=== PATIENT | female | born 1975 | race Caucasian/White ===

== ENCOUNTER 2016-08-07 02:38 | Emergency (ER) | payer OTHER ==
[~2016-08-07] VITALS: Ht 157.5 cm; Wt 57.6 kg
[~2016-08-07 02:38] MED LIST: GABA800T PO; OXCA150T2 PO; OXCA600T2 PO; PANT20TA2 PO; ZIPR60CA PO
[2016-08-07 02:54] VITALS: TEMP 37; Ht 157.5 cm; Wt 57.6 kg
[2016-08-07] MEDS ORDERED: OXYCODONE/ACETAMINOPHEN 5-325 TAB PO ONE (03:45)
[2016-08-07] MEDS ORDERED: OXYC-57 PO (04:57)
--- NOTE | 2016-08-07 04:58 | EMERGENCY ROOM VISIT NOTE ---
ED Visit Note First contact with patient: 03:01 Chief Complaint: Arm Swelling History of Present Illness: Patient is a 40-year-old female who presents to the emergency department by private vehicle this morning for evaluation of her left elbow pain and swelling. She reports that she slipped and fell on Thursday evening. She reports that she was seen at the [facility] emergency department tonight as her elbow began to swell and cause more discomfort. She had an x- ray performed which was thought to be unremarkable. She was provided Toradol falls hydrocodone with no relief of symptoms. She is provided an arm sling for comfort. She is had progressively worsening symptoms which prompted her visit to the emergency Department this evening. The patient is tried over-the- counter medications for symptoms. She rates her current discomfort as an 8/10. Patient denies any associated neck pain, shoulder pain, wrist pain, or hand pain. She denies any numbness or tingling into the distal extremity. She reports no previous fracture or injury to the affected elbow. Medications: Reviewed and discussed with the patient. Allergies: Ciprofloxacin, erythromycin, macrolides, penicillins, sulfa drugs PMH: No pertinent past medical history. SHx: Patient is a 40-year-old female who lives locally. ROS: All pertinent positive and negative review of systems are appropriately documented in the History of Present Illness. Physical Exam: VITAL SIGNS - Vital signs and nursing notes were reviewed. GENERAL - 40-year-old female appearing her stated age and in noticeable discomfort throughout the exam. MUSCULOSKELETAL - Active ROM of the LEFT elbow was limited in both flexion and extension. Mild edema noted to the lateral epicondyle area of the LEFT elbow. No palpable deformities. Mild tenderness over the olecranon process. Moderate tenderness with squeezing the forearm. No tenderness extending to up the humerus. Moderate pain elicited with supination and pronation of the forearm. NEUROLOGIC - SENSORY: Spinothalamic tract was found to be intact with ability to discriminate sharp versus dull sensation at the level of the LEFT shoulder down to the fingertips. No sensory deficits of the dorsal column were appreciated utilizing light touch for evaluation. VASCULAR - Capillary refill was brisk. +3/5 radial pulse palpated. IMAGING: X-ray was obtained and reviewed by myself. There is a questionable small nondisplaced radial head fracture versus artifact. Radiologist's impression unavailable at the time of dictation. ED Course: Patient was seen and evaluated by myself. Patient was provided Percocet for her pain. X-ray of the affected elbow was obtained. Imaging concerning for possible nondisplaced radial head fracture. The patient will continue to use her sling for comfort. She'll follow-up with her primary care provider who is a sports medicine provider. She was offered orthopedic follow-up which she declines at this point. She was provided Percocet for breakthrough symptoms of pain. She was educated on worrisome symptoms for return visit to the emergency department. Patient discharged home in good condition. In the evaluation and treatment of this patient, the following differential diagnoses were considered: Forearm Contusion, Radial Head Fracture, Radial Styloid Process Fracture, Ulnar Styloid Process Fracture, Radius Fracture, Ulnar Fracture, Tennis Elbow, Golfer's Elbow, or Elbow Fracture. Impression: LEFT Elbow Injury, LEFT Radial Head Fracture Discharge Instructions: You have been treated in the Emergency Department for Elbow Pain. You have received pain medicine in the emergency department which impairs your ability to operate a vehicle. It is illegal for you to drive after receiving these medicines. You have been prescribed Percocet to be used for pain control. This is a narcotic medication. You cannot drive or consume alcohol while on this medicine. This medicine should only be used for pain that cannot be controlled with hkyn-rqg-bgpqnme pain medicines. For pain control, you can use the following yhgr-ymm-zfiupul medicines (if >12 yo): - Regular strength (325mg/tab) Tylenol (acetaminophen) 2 tabs every 4-6 hours as needed. Do not exceed 12 tablets in a 24 hour period. Avoid taking more than 4 grams (4000 mg) of Tylenol per day. This includes any other sources of acetaminophen you may take on a regular basis. - Regular strength (200 mg/tab) Advil (ibuprofen) 1-2 tabs every 4-6 hours as needed. Do not exceed a dose of 3200 mg per day. If this is a recent injury (<24 hrs), ice can be applied to the area of pain for the first 3 days to help decrease pain and inflammation. You have been provided the number for an Orthopaedic Surgeon. You should call this number as soon as possible to establish a follow-up visit from today's Emergency Department visit. Return to the Emergency Department if your current symptoms worsen despite treatment course outlined above, or if you develop any of the following symptoms : intractable pain despite aforementioned treatment course or new onset of numbness or tingling of the arm. Problem List Medical Problems: (1) Mitral valve prolapse Status: Chronic (2) Stress Status: Chronic (3) Tobacco dependence Status: Chronic Current/Historical Medications Scheduled Cephalexin Monohydrate (Keflex), 500 MG PO TID Gabapentin (Neurontin), 800 MG PO QID Oxcarbazepine (Trileptal), 150 MG PO BID Oxcarbazepine (Trileptal), 600 MG PO BID Quetiapine Fumarate Xr (Seroquel Xr), 200 MG PO DAILY Allergies Coded Allergies: Macrolides (Verified Allergy, Mild, 08/08/16) RXN NOT STATED- PT SAYS SHE CAN ONLY TAKE TETRACYCLINE Penicillins (Verified Allergy, Mild, 08/08/16) RXN UNKNOWN-PT SAYS SHE CAN ONLY TAKE TETRACYCLINE Sulfa Drugs (Verified Allergy, Mild, 08/08/16) RXN NOT STATED- PT SAYS SHE CAN ONLY TAKE TETRACYCLINE Ciprofloxacin (Verified Allergy, Unknown, `, 08/08/16) Erythromycin (Verified Allergy, Unknown, `, 08/08/16) Vital Signs Date Time Temp Pulse Resp B/P Pulse Ox O2 Delivery O2 Flow Rate FiO2 08/07/16 05:20 66 20 131/81 98 08/07/16 04:49 66 20 131/81 98 Room Air 08/07/16 02:54 37.0 79 20 153/101 98 Room Air Medications Administered Medications (Trade) Dose Ordered Sig/Radha Route Start Time Stop Time Status Last Admin Dose Admin Oxycodone/ Acetaminophen (Percocet 5-325mg Tab) 1 tab NOW ONCE PO 08/07/16 03:45 08/07/16 03:46 DC 08/07/16 03:56 1 TAB Oxycodone/ Acetaminophen (Percocet 5/ 325MG Home Pack) 1 homepack UD ONCE PO 08/07/16 05:00 08/07/16 05:01 DC 08/07/16 05:16 1 HOMEPACK Departure Information Impression Primary Impression: Radial head fracture Additional Impression: Injury of elbow Dispostion Home / Self-Care Condition GOOD Referrals Sal Zafar M.D. (PCP) Patient Instructions ED Fx Radial Head, My [facility] Additional Instructions You have been treated in the Emergency Department for Elbow Pain. You have received pain medicine in the emergency department which impairs your ability to operate a vehicle. It is illegal for you to drive after receiving these medicines. You have been prescribed Percocet to be used for pain control. This is a narcotic medication. You cannot drive or consume alcohol while on this medicine. This medicine should only be used for pain that cannot be controlled with nmtz-luh-azanlcz pain medicines. For pain control, you can use the following hfdi-sba-ojsidll medicines (if >12 yo): - Regular strength (325mg/tab) Tylenol (acetaminophen) 2 tabs every 4-6 hours as needed. Do not exceed 12 tablets in a 24 hour period. Avoid taking more than 4 grams (4000 mg) of Tylenol per day. This includes any other sources of acetaminophen you may take on a regular basis. - Regular strength (200 mg/tab) Advil (ibuprofen) 1-2 tabs every 4-6 hours as needed. Do not exceed a dose of 3200 mg per day. If this is a recent injury (<24 hrs), ice can be applied to the area of pain for the first 3 days to help decrease pain and inflammation. You have been provided the number for an Orthopaedic Surgeon. You should call this number as soon as possible to establish a follow-up visit from today's Emergency Department visit. Return to the Emergency Department if your current symptoms worsen despite treatment course outlined above, or if you develop any of the following symptoms : intractable pain despite aforementioned treatment course or new onset of numbness or tingling of the arm. Problem Qualifiers Primary Impression: Radial head fracture Encounter type: initial encounter Fracture type: closed Fracture alignment : nondisplaced Laterality: left Qualified Codes: S52.125A - Nondisplaced fracture of head of left radius, initial encounter for closed fracture Additional Impression: Injury of elbow Encounter type: initial encounter Laterality: left Qualified Codes: S59.902A - Unspecified injury of left elbow, initial encounter
[2016-08-07] MEDS ORDERED: PERCOCET HOME PACK PO ONE (05:00)
[2016-08-07 05:20] VITALS: BP 131/81; PULSE 66; O2SAT 98
--- NOTE | 2016-08-07 06:38 | DIAGNOSTIC IMAGING REPORT ---
LEFT ELBOW MIN 3 VIEWS ROUTINE CLINICAL HISTORY: Left elbow pain status post trauma COMPARISON: None. DISCUSSION: The fat pads are visible but not significantly displaced. There is age-indeterminate irregularity involving the lateral aspect of the radial head. There is diffuse soft tissue edema. There is no dislocation. IMPRESSION: Subtle age-indeterminate irregularity involving the lateral aspect of the radial head Electronically signed by: Gabe Koo M.D. 08/07/2016 6:37 AM Dictated Date/Time: 08/07/2016 6:35 AM
[2016-08-08] MEDS ORDERED: QUET200T2 PO (00:40)
[2016-08-08] MEDS ORDERED: CEPH500C PO (03:02)
== END 2016-08-07 05:24 | disposition home or self-care (01) ==
LOC: C.EDB 02:39
DX: S52.125A Nondisplaced fracture of head of left radius, initial encounter for closed fracture (principal); S59.902A Unspecified injury of left elbow, initial encounter; X58.XXXA Exposure to other specified factors, initial encounter; I34.1 Nonrheumatic mitral (valve) prolapse; F17.200 Nicotine dependence, unspecified, uncomplicated

== ENCOUNTER 2016-08-07 23:39 | Emergency (ER) | payer OTHER ==
[~2016-08-07] VITALS: Ht 157.5 cm; Wt 57.7 kg
[~2016-08-07 23:39] MED LIST changes: +OXYC-57 PO
[2016-08-07 23:54] VITALS: TEMP 37.1; Ht 157.5 cm; Wt 57.7 kg
[2016-08-08] MEDS ORDERED: QUET200T2 PO (00:40)
[2016-08-08 00:59] LABS: HEMATOCRIT 38.9 % (37-47); MEAN CELL VOLUME 92.6 fL (80-100); MEAN CORPUSCULAR HEMOGLOBIN 31.9 pg (25-34); MEAN CORPUSCULAR HGB CONC 34.4 g/dl (32-36); MEAN PLATELET VOLUME 11.7 fL (7.4-10.4); PLATELET COUNT 243 K/uL (130-400); WHITE BLOOD COUNT 14.92 K/uL (4.8-10.8)
[2016-08-08 01:13] LABS: INR 0.9 (0.9-1.1); PARTIAL THROMBOPLASTIN RATIO 1.1; PROTHROMBIN TIME (PATIENT) 10.1 SECONDS (9.0-12.0)
[2016-08-08 01:16] LABS: CALCIUM 8.6 mg/dl (8.5-10.1); POTASSIUM 3.8 mmol/L (3.5-5.1)
[2016-08-08 01:17] LABS: BUN/CREATININE RATIO 25.9 (10-20); C-REACTIVE PROTEIN 1.73 mg/dl (0-0.29); CREATININE 0.63 mg/dl (0.60-1.20)
[2016-08-08] MEDS ORDERED: MoRPHine SULFATE 4 MG/ML 1 ML CARP\\VIAL IV STA (01:50)
[2016-08-08] MEDS ORDERED: SODIUM CHLORIDE 0.9% 1000ML 1,000 ML IV STA (01:50)
[2016-08-08] MEDS ORDERED: ONDANSETRON INJ 2 MG/ML 2 ML VIAL IV STA (01:50)
[2016-08-08 02:12] LABS: BASO % 0.1 %; BASO ABS # 0.02 K/uL (0-0.2); COMPLETE YES; EOS % 0.6 %; IG% 0.3 %; LYMPH % 17.7 %; LYMPH ABS # 2.64 K/uL (1.2-3.4); MONO % 7.2 %; NEUT % 74.1 %
[2016-08-08] MEDS ORDERED: CEPHALEXIN MONOHYDRATE 250 MG CAP PO ONE (02:15)
[2016-08-08] MEDS ORDERED: CEPHALEXIN 500MG HOME PACK 1 EA BTL PO ONE (02:15)
[2016-08-08] MEDS ORDERED: CEPH500C PO (03:02)
--- NOTE | 2016-08-08 03:03 | EMERGENCY ROOM VISIT NOTE ---
History First contact with patient: 00:06 Chief Complaint: ARM PAIN Stated Complaint: COMPLICATIONS SINCE D/C THIS MORNING, LT ARM PAIN History of Present Illness The patient is a 40 year old female who presents to the Emergency Department by private vehicle for evaluation of her ongoing pain to the LEFT upper extremity with associated redness this evening. The patient sustained a mechanical fall on Thursday. She was seen in the [facility] emergency department on Thursday evening. She had persistent pain which prompted visit to this facility early morning. She had been feeling fine, but has had persistent pain. She developed redness to the elbow area which was concerning to him which prompted her visit today. The patient reports numbness to the entire hand. She reports some mild decreased range of motion secondary to discomfort at the elbow. She rates her current discomfort as an 8/10. Patient denies any fevers, chills, nausea, vomiting, or new/recent trauma to the area. She does not utilize any blood thinners. She is tried adsk-tlb-twqxlua medications for her symptoms. She has had Percocet which is provided a moderate amount of relief. Review of Systems A complete 10-point Review of Systems was discussed with the patient, with pertinent positives and negatives listed in the History of Present Illness. All remaining Review of Systems questions can be considered negative unless otherwise specified. Past Medical/Surgical History Medical Problems: (1) Mitral valve prolapse (2) Stress (3) Tobacco dependence Family History FHx: heart disease Social History Smoking Status: Current Every Day Smoker Smokeless Tobacco Use: No Drug Use: marijuana Marital Status: Occupation Status: unemployed Current/Historical Medications Scheduled Cephalexin Monohydrate (Keflex), 500 MG PO TID Gabapentin (Neurontin), 800 MG PO QID Oxcarbazepine (Trileptal), 150 MG PO BID Oxcarbazepine (Trileptal), 600 MG PO BID Quetiapine Fumarate Xr (Seroquel Xr), 200 MG PO DAILY Allergies Coded Allergies: Macrolides (Verified Allergy, Mild, 08/08/16) RXN NOT STATED- PT SAYS SHE CAN ONLY TAKE TETRACYCLINE Penicillins (Verified Allergy, Mild, 08/08/16) RXN UNKNOWN-PT SAYS SHE CAN ONLY TAKE TETRACYCLINE Sulfa Drugs (Verified Allergy, Mild, 08/08/16) RXN NOT STATED- PT SAYS SHE CAN ONLY TAKE TETRACYCLINE Ciprofloxacin (Verified Allergy, Unknown, `, 08/08/16) Erythromycin (Verified Allergy, Unknown, `, 08/08/16) Physical Exam Vital Signs Date Time Temp Pulse Resp B/P Pulse Ox O2 Delivery O2 Flow Rate FiO2 08/08/16 03:13 70 18 106/81 100 08/08/16 01:53 77 18 114/77 99 Room Air 08/07/16 23:54 37.1 95 16 126/84 98 Room Air Pain Rating (0-10): 8 Physical Exam VITAL SIGNS - Vital signs and nursing notes were reviewed. GENERAL - 40-year-old female appearing her stated age and in noticeable discomfort throughout the exam. MUSCULOSKELETAL - Active ROM of the LEFT elbow was limited in both flexion and extension. She has approximately 75% extension of the affected elbow. There is overlying erythema to the lateral surface of the elbow. The compartments are soft, but tender to palpation. No palpable cords. Minimally warm to touch. No ecchymosis noted. No palpable deformities. Mild tenderness over the olecranon process. Moderate tenderness with squeezing the forearm. No tenderness extending to up the humerus. Moderate point-tenderness over the insertion of the lateral collateral ligament. Moderate pain elicited with supination and pronation of the forearm. Able to extend and flex the wrist. NEUROLOGIC - SENSORY: Spinothalamic tract was found to be intact with ability to discriminate sharp versus dull sensation at the level of the LEFT shoulder down to the fingertips. No sensory deficits of the dorsal column were appreciated utilizing light touch for evaluation. VASCULAR - Capillary refill was brisk. +3/5 radial pulse palpated. Medical Decision & Procedures ER Provider Diagnostic Interpretation: Radiological imaging and reports were reviewed by myself. Radiologist's Interpretation per [facility] as follows: US VENOUS LEFT UPPER EXTREMITY: No DVT. CT LEFT ELBOW: Small fragment near the lateral epicondyle, could be small evulsion fragment or degenerative in nature. Soft tissue swelling and edema. Effusion. Laboratory Results 08/08/16 00:35 Red Blood Count 4.20, Mean Corpuscular Volume 92.6, Mean Corpuscular Hemoglobin 31.9, Mean Corpuscular Hemoglobin Concent 34.4, Mean Platelet Volume 11.7, Neutrophils (%) (Auto) 74.1, Lymphocytes (%) (Auto) 17.7, Monocytes (%) (Auto) 7.2, Eosinophils (%) (Auto) 0.6, Basophils (%) (Auto) 0.1, Neutrophils # (Auto) 11.05, Lymphocytes # (Auto) 2.64, Monocytes # (Auto) 1.08, Eosinophils # (Auto) 0.09, Basophils # (Auto) 0.02 08/08/16 00:35 Test 08/08/16 00:35 White Blood Count 14.92 K/uL (4.8-10.8) Red Blood Count 4.20 M/uL (4.2-5.4) Hemoglobin 13.4 g/dL (12.0-16.0) Hematocrit 38.9 % (37-47) Mean Corpuscular Volume 92.6 fL (80-100) Mean Corpuscular Hemoglobin 31.9 pg (25-34) Mean Corpuscular Hemoglobin Concent 34.4 g/dl (32-36) Platelet Count 243 K/uL (130-400) Mean Platelet Volume 11.7 fL (7.4-10.4) Neutrophils (%) (Auto) 74.1 % Lymphocytes (%) (Auto) 17.7 % Monocytes (%) (Auto) 7.2 % Eosinophils (%) (Auto) 0.6 % Basophils (%) (Auto) 0.1 % Neutrophils # (Auto) 11.05 K/uL (1.4-6.5) Lymphocytes # (Auto) 2.64 K/uL (1.2-3.4) Monocytes # (Auto) 1.08 K/uL (0.11-0.59) Eosinophils # (Auto) 0.09 K/uL (0-0.5) Basophils # (Auto) 0.02 K/uL (0-0.2) RDW Standard Deviation 49.4 fL (36.4-46.3) RDW Coefficient of Variation 14.5 % (11.5-14.5) Immature Granulocyte % (Auto) 0.3 % Immature Granulocyte # (Auto) 0.04 K/uL (0.00-0.02) Erythrocyte Sedimentation Rate 3 mm/hr (0-21) Prothrombin Time 10.1 SECONDS (9.0-12.0) Prothromb Time International Ratio 0.9 (0.9-1.1) Activated Partial Thromboplast Time 27.8 SECONDS (21.0-31.0) Partial Thromboplastin Ratio 1.1 Anion Gap 5.0 mmol/L (3-11) Est Creatinine Clear Calc Drug Dose 94.9 ml/min Estimated GFR () 131.0 Estimated GFR (Non- 113.0 BUN/Creatinine Ratio 25.9 (10-20) Calcium Level 8.6 mg/dl (8.5-10.1) Total Creatine Kinase 1187 U/L (26-192) C-Reactive Protein 1.73 mg/dl (0-0.29) Medications Administered Medications (Trade) Dose Ordered Sig/Radha Route Start Time Stop Time Status Last Admin Dose Admin Morphine Sulfate (MoRPHine SULFATE INJ) 4 mg NOW STAT IV 08/08/16 01:50 08/08/16 01:51 DC 08/08/16 02:04 4 MG Ondansetron HCl 4 mg 4 mg NOW STAT IV 08/08/16 01:50 08/08/16 01:51 DC 08/08/16 02:03 4 MG Sodium Chloride (Nss 1000ml) 1,000 ml @ 999 mls/hr Q1H1M STAT IV 08/08/16 01:50 08/08/16 02:50 DC 08/08/16 02:03 999 MLS/HR Cephalexin Monohydrate (Keflex 500MG Home Pack) 1 homepack NOW ONCE PO 08/08/16 02:15 08/08/16 02:16 DC 08/08/16 02:17 1 HOMEPACK Cephalexin Monohydrate (Keflex Cap) 500 mg NOW ONCE PO 08/08/16 02:15 08/08/16 02:16 DC 08/08/16 02:17 500 MG ED Course Patient was seen and evaluated by myself. I'm familiar with this patient from her visit earlier today. Labs were drawn, saline lock in place. CT the elbow and ultrasound of the LEFT upper extremity was obtained. Laboratory results demonstrate a mild leukocytosis. Her ESR is not elevated. CRP is minimally elevated. CPK was elevated at 1187. Patient was hydrated with a 1000 mL normal saline bolus. She received 4 mg morphine and 4 mg Zofran. Case was discussed with my attending physician who agrees the diagnostic approach treatment plan. I did discuss the case with [facility] surgery. He suggests splinting the area for comfort and continue with a sling. They are not concerned for compartment syndrome at this point. The patient was covered prophylactically with antibiotics. She reports feeling much better with sling in place. She will followup with orthopedic surgery from today's visit. She was educated on worrisome symptoms for return visit to the emergency part. Patient discharged home in good condition with her son driving. Medical Decision Given the patient's presentation and exam findings, I did elect to perform the above-mentioned workup. The patient presents with redness to the LEFT elbow. She had sustained a mechanical fall resulting in injury on Thursday. She had plain radiographs performed which were concerning for a nondisplaced radial head fracture. She reports that her pain has been adequately controlled with Percocet, but redness developed this evening which was concerning to her. The patient complains of subjective numbness to all fingers of the LEFT hand, however she does have range of motion in sensation on exam. She remains neurovascularly intact distally. She has full extension and flexion of the wrist. She did have a 14,000 white count as well as elevation of her CPK. Because of this, I did consult orthopedic surgery. They were unconcerned for compartment syndrome at this point. They do suggest splinting the area well as the patient is likely experiencing symptoms secondary to the edema from the injury. She did feel much better after splint was applied. She will follow-up with surgery tomorrow. She will return the emergency department in the setting of any changing or worsening symptoms. Patient discharged home in good condition. In the evaluation and treatment of this patient, the following differential diagnoses were considered: Forearm Contusion, Radial Head Fracture, Radial Styloid Process Fracture, Ulnar Styloid Process Fracture, Radius Fracture, Ulnar Fracture, Tennis Elbow, Golfer's Elbow, or Elbow Fracture. Impression Primary Impression: Elbow pain, left Additional Impression: Edema of upper extremity Departure Information Dispostion Home / Self-Care Condition GOOD Prescriptions Cephalexin Monohydrate (Keflex) 500 Mg Cap 500 MG PO TID for 10 Days, #30 CAP Prov: Jake Lozano PA-C 08/08/16 Referrals Sal Zafar M.D. (PCP) Phill Krishnan M.D. Patient Instructions My [facility] Additional Instructions You have been seen in the emergency department today for worsening pain and swelling to the LEFT upper extremity. You were prescribed Keflex to be taken as prescribed. This is an antibiotic. All antibiotics have the potential to cause diarrhea. Stop this medication and contact a medical provider if you were to develop any significant adverse side effects including: wheezing, shortness of breath, passing out, vomiting, or a diffuse rash. Always take antibiotics as directed and COMPLETE the ENTIRE course regardless of the improvement of your symptoms. Continue your Percocet as needed for pain. For pain control, you can use the following duer-lhc-pkofsnr medicines (if >12 yo): - Regular strength (325mg/tab) Tylenol (acetaminophen) 2 tabs every 4-6 hours as needed. Do not exceed 12 tablets in a 24 hour period. Avoid taking more than 4 grams (4000 mg) of Tylenol per day. This includes any other sources of acetaminophen you may take on a regular basis. - Regular strength (200 mg/tab) Advil (ibuprofen) 1-2 tabs every 4-6 hours as needed. Do not exceed a dose of 3200 mg per day. Follow-up with orthopedic surgery as soon as possible from today's visit. Return for any changing or worsening symptoms. Problem Qualifiers
[2016-08-08 03:13] VITALS: BP 106/81; PULSE 70; O2SAT 100
--- NOTE | 2016-08-08 07:09 | DIAGNOSTIC IMAGING REPORT ---
ULTRASOUND LEFT UPPER EXTREMITY VENOUS CLINICAL HISTORY: Left arm pain. COMPARISON STUDY: No priors. TECHNIQUE: Real-time, grayscale, and color Doppler sonography of the deep veins of the left upper extremity is performed. Compression and augmentation were utilized. FINDINGS: There is no sonographic evidence of deep venous thrombosis identified in the left upper extremity. The left internal jugular, axillary, and brachial veins are patent and normally compressible. Normal venous waveforms and augmentation are seen within the left subclavian vein. The cephalic and basilic veins are clear. The visualized radial and ulnar veins are patent. IMPRESSION: There is no sonographic evidence of deep venous thrombosis identified in the left upper extremity. Electronically signed by: Rubio Elizondo M.D. 08/08/2016 7:07 AM Dictated Date/Time: 08/08/2016 7:07 AM
--- NOTE | 2016-08-08 07:25 | DIAGNOSTIC IMAGING REPORT ---
CT OF THE LEFT ELBOW CT DOSE: 606.83 mGy.cm HISTORY: Trauma. Pain. LEFT elbow pain/injury TECHNIQUE: Multiaxial CT images of the left elbow were performed and reformatted in the sagittal and coronal plane without the use of contrast. COMPARISON: None. FINDINGS: Considerable soft tissue edematous changes throughout. Small cortical avulsion posterior aspect proximal ulna most likely old. This is immediately adjacent to the radial head. Very small avulsion medially posterior to the lateral condyle. This is age indeterminate. Alignment is anatomic throughout. IMPRESSION: 1. Small cortical avulsion adjacent to the radial head considered nonacute. 2. Tiny avulsion posterior aspect lateral condyle 3. Generalized soft tissue edema. 4. Very small joint effusion. Electronically signed by: Darnell Carpenter M.D. 08/08/2016 7:24 AM Dictated Date/Time: 08/08/2016 7:20 AM
== END 2016-08-08 03:14 | disposition home or self-care (01) ==
LOC: C.EDB 23:40
DX: M25.522 Pain in left elbow (principal); M79.9 Soft tissue disorder, unspecified; W19.XXXD Unspecified fall, subsequent encounter; F17.210 Nicotine dependence, cigarettes, uncomplicated; I34.1 Nonrheumatic mitral (valve) prolapse; Z79.899 Other long term (current) drug therapy

== ENCOUNTER → 2016-08-15 | Outpatient (CLI) | payer OTHER ==
[~2016-08-15] MED LIST changes: +CEPH500C PO; +CLR10 PO; +CYCL10TA6 PO; +HYDR-5688 PO; -OXYC-57 PO; -PANT20TA2 PO; +PRLSR20 PO; +QUET200T2 PO; -ZIPR60CA PO; +psych med PO
--- NOTE | 2016-08-15 11:54 | DIAGNOSTIC IMAGING REPORT ---
LEFT ELBOW MIN 3 VIEWS CLINICAL HISTORY: LEFT ELBOW PAIN pain COMPARISON: None. DISCUSSION: Generalized soft tissue edematous change. No well-defined joint effusion. Cortical margins are intact. No acute bony abnormality. No abnormal periosteal reaction. IMPRESSION: Generalized soft tissue edematous change. No acute bony abnormality. Electronically signed by: Darnell Carpenter M.D. 08/15/2016 11:52 AM Dictated Date/Time: 08/15/2016 11:51 AM
== END | disposition home or self-care (01) ==
LOC: C.RDSM 13:40
PROVIDERS: ATTEND Physician Assistant
DX: M25.522 Pain in left elbow (principal)

== ENCOUNTER → 2016-09-04 | Outpatient (CLI) | payer OTHER ==
[~2016-09-04] MED LIST changes: -CEPH500C PO
--- NOTE | 2016-09-04 11:54 | DIAGNOSTIC IMAGING REPORT ---
LEFT ELBOW MIN 3 VIEWS CLINICAL HISTORY: Left elbow pain. Healing fracture. COMPARISON: Left elbow radiographs August 15, 2016. FINDINGS: Alignment of left elbow is anatomic. There is no acute fracture or joint effusion. Joint spaces are preserved. IMPRESSION: No acute fracture or joint effusion of the left elbow. Electronically signed by: Jimi Rodriguez M.D. 09/04/2016 11:53 AM Dictated Date/Time: 09/04/2016 11:52 AM
== END | disposition home or self-care (01) ==
LOC: C.RDSM 13:52
PROVIDERS: ATTEND Physician Assistant
DX: M25.522 Pain in left elbow (principal)

== ENCOUNTER → 2016-10-27 | Outpatient (CLI) | payer OTHER | END | disposition home or self-care (01) | LOC: C.RDSM 14:11 | PROVIDERS: ATTEND Physical Medicine & Rehabilitation Sports Medicine | DX: S53.442A Ulnar collateral ligament sprain of left elbow, initial encounter (principal); X58.XXXA Exposure to other specified factors, initial encounter ==

== ENCOUNTER 2017-01-04 16:59 | Emergency (ER) | payer OTHER ==
[~2017-01-04] VITALS: Ht 157.5 cm; Wt 56.5 kg
[~2017-01-04 16:59] MED LIST changes: -CLR10 PO; -CYCL10TA6 PO; -HYDR-5688 PO; -PRLSR20 PO; -psych med PO
[2017-01-04 17:03] VITALS: TEMP 36.6; Ht 157.5 cm; Wt 56.5 kg
[2017-01-04] MEDS ORDERED: CLR10 PO (17:25)
[2017-01-04] MEDS ORDERED: psych med PO (17:25)
[2017-01-04] MEDS ORDERED: PRLSR20 PO (17:25)
[2017-01-04] MEDS ORDERED: DIAZEPAM 5MG TAB PO STA (18:00)
[2017-01-04] MEDS ORDERED: ONDANSETRON 4MG OD TAB PO ONE (18:00)
[2017-01-04] MEDS ORDERED: KETOROLAC TROMETHAMINE 60 MG/2 ML VIAL IM STA (18:00)
[2017-01-04] MEDS ORDERED: HYDROmorphone INJ 1 MG/ML SYR IM STA (18:00)
[2017-01-04] MEDS ORDERED: HYDR-5688 PO (19:00)
[2017-01-04] MEDS ORDERED: CYCL10TA6 PO (19:00)
--- NOTE | 2017-01-04 19:01 | EMERGENCY ROOM VISIT NOTE ---
ED Visit Note First contact with patient: 17:19 CHIEF COMPLAINT: Mid back pain since yesterday morning HISTORY OF PRESENT ILLNESS: Patient is a 41-year-old white female who presents emergency department for evaluation of mid back pain that started acutely yesterday morning. She reports she was laying on her abdomen on the ground and she had a kitten on her back. She twisted to get the cat off of her back, and fell the acute onset of a sharp pain in her left mid back. She describes feeling a snapping sensation at the time of the injury. She has tried icy hot, massage and heat to the area. She is out of acetaminophen and reports she cannot tolerate NSAIDs due to stomach issues. The pain is located between her shoulder blades, primarily on the left, but she does feel some spasms radiating down to her low back with certain movements. She does not have a history of any significant back issues. She denies any radiation of the pain into her buttocks or legs. No numbness, tingling or weakness of the extremities. No bowel or bladder incontinence. She rates her pain a 9/10 presently. REVIEW OF SYSTEMS: Review of systems as per HPI. All other systems reviewed were negative. 10 systems reviewed. PMH: Electronic medical records are reviewed and summarized as above/below. See Problem List. SOCIAL HISTORY: Patient lives at home with her children. She is a student. Positive tobacco use. PHYSICAL EXAM: Vital Signs: Reviewed Nurse's notes. CONSTITUTIONAL: Patient is who is awake and alert and sitting semi-upright on the gurney in moderate distress due to their back pain. There is significant discomfort with position changes. NECK: Supple without lymphadenopathy. No thyromegaly. No meningeal signs. Full active range of motion without discomfort. CARDIOVASCULAR: Regular rate and rhythm, with normal S1 and S2, no murmur or gallop or rub is heard. No carotid bruits auscultated. No JVD. Peripheral pulses easily palpable. RESPIRATORY: Breath sounds equal and clear to auscultation without wheezes, rales, or rhonchi heard. Full and equal chest expansion without accessory muscle use or retractions. ABDOMEN: Bowel sounds are present. Abdomen is soft, nontender and nondistended. INTEGUMENTARY: No lesions or rash, normal skin turgor. LYMPH: No lymphadenopathy. SPINE: Examination of the patient's back does not demonstrate any ecchymosis, abrasions or outward signs of trauma. No erythema, increased warmth or induration. Patient has midline discomfort to palpation over the mid thoracic paraspinous musculature on the left. No pain over the thoracic spinous processes or in the right paraspinous musculature. There is no pain over the lumbar spinous process. There is no pain over the SI joint or the sciatic notch. She has increased pain with range of motion including rotation and flexion. EXTREMITIES: Leg lengths are symmetrical. Negative logroll bilaterally. Normal strength including dorsi-flexion and plantar flexion of the great toes and ankles and flexion and extension of the knees and flexion of the hips. Negative bilateral straight leg raise testing. Upper and lower extremity DTRs are equal and symmetrical bilaterally. Distal pulses are easily palpable. Sensation light touch is intact over the upper and lower extremities bilaterally. EMERGENCY DEPARTMENT COURSE: The patient was seen and examined as above. Old records were reviewed. She was medicated with Zofran 4 mg ODT, Valium 5 mg by mouth, Toradol 60 mg IM and Dilaudid 1 mg IM. Urine dip and test were clear. She was reassessed, and reported she felt markedly improved. She was observed moving more easily around the exam room and on the gurney with less discomfort. Conservative care measures were discussed. Her mechanism of injury appears more consistent with muscle/ligament etiology, and given lack of direct trauma to the area was not felt that radiographs were indicated. She expressed understanding of this and was agreeable. She does not have any physical exam findings to suspect acute cord compression or cauda equina syndrome. Conservative care measures were discussed. She was given a small prescription for Mantador and Flexeril to use as needed. Driving precautions were outlined. She was discharged to home with a family friend driving. She rated her pain a 0/10 at discharge. Patient was reviewed in the [facility] Prescription Drug Monitoring Program, and there were no red flags noted. Medication reconciliation: I attest that I have personally reviewed the patient' s current medication list. Blood pressure screening : Patient was found to have normal blood pressure on screening and does not require follow-up. Problem List Medical Problems: (1) Abnormal EKG Status: Resolved (2) Acute bronchitis Status: Resolved (3) Anxiety State Nos Status: Chronic (4) Asthma W/O Status Asthm Status: Chronic (5) Back pain Status: Resolved (6) Bronchitis Status: Resolved (7) Cervical radiculopathy Status: Resolved (8) Depressive Disorder Nec Status: Chronic (9) Edema of upper extremity Status: Resolved (10) Elbow pain, left Status: Resolved (11) Injury of elbow Status: Resolved (12) Irritable Bowel Syndrome Without Diarrhea Status: Chronic (13) Mitral valve prolapse Status: Chronic (14) Pleuritic chest pain Status: Resolved (15) Radial head fracture Status: Resolved (16) Right otitis media Status: Resolved (17) Stress Status: Chronic (18) Tobacco dependence Status: Chronic Current/Historical Medications Scheduled Loratadine (Claritin), 10 MG PO DAILY Omeprazole (Prilosec), 20 MG PO BID [psych med], 1 TAB PO DAILY Scheduled PRN Cyclobenzaprine Hcl (Flexeril), 10 MG PO TID PRN for Muscle Spasms Hydrocodone/Acetaminophen 5MG/325MG (Mantador 5MG/325MG), 1-2 TABLETS PO Q4 PRN for Pain Allergies Coded Allergies: Macrolides (Verified Allergy, Mild, 01/04/17) RXN NOT STATED- PT SAYS SHE CAN ONLY TAKE TETRACYCLINE Penicillins (Verified Allergy, Mild, 01/04/17) RXN UNKNOWN-PT SAYS SHE CAN ONLY TAKE TETRACYCLINE Sulfa Drugs (Verified Allergy, Mild, 01/04/17) RXN NOT STATED- PT SAYS SHE CAN ONLY TAKE TETRACYCLINE Ciprofloxacin (Verified Allergy, Unknown, `, 01/04/17) Erythromycin (Verified Allergy, Unknown, `, 01/04/17) Vancomycin (Unverified Adverse Reaction, Severe, red, hot, rash, 01/04/17) Cephalexin (Unverified Adverse Reaction, Intermediate, rash, 01/04/17) Vital Signs Date Time Temp Pulse Resp B/P (MAP) Pulse Ox O2 Delivery O2 Flow Rate FiO2 01/04/17 19:09 73 16 123/76 98 01/04/17 17:03 36.6 85 16 101/70 100 Room Air Laboratory Results Test 01/04/17 18:15 Urine Test NEG (NEG) Medications Administered Medications (Trade) Dose Ordered Sig/Radha Route Start Time Stop Time Status Last Admin Dose Admin Ketorolac Tromethamine (Toradol Inj) 60 mg NOW STAT IM 01/04/17 18:00 01/04/17 18:02 DC 01/04/17 18:18 60 MG Ondansetron HCl (Zofran Odt) 4 mg ONE ONCE PO 01/04/17 18:00 01/04/17 18:02 DC 01/04/17 18:16 4 MG Diazepam (Valium Tab) 5 mg NOW STAT PO 01/04/17 18:00 01/04/17 18:02 DC 01/04/17 18:17 5 MG Hydromorphone HCl (Dilaudid Inj) 1 mg NOW STAT IM 01/04/17 18:00 01/04/17 18:02 DC 01/04/17 18:17 1 MG Departure Information Impression Primary Impression: Thoracic myofascial strain Prescriptions Cyclobenzaprine Hcl (FLEXERIL) 10 Mg Tab 10 MG PO TID Y for Muscle Spasms, #20 TAB Prov: Margot Smith PA 01/04/17 Hydrocodone/Acetaminophen 5MG/325MG (Mantador 5MG/325MG) Tab 1-2 TABLETS PO Q4 Y for Pain, #20 TAB For Initial Treatment Prov: Margot Smith PA 01/04/17 Referrals No Doctor, Assigned (PCP) Patient Instructions My [facility] Additional Instructions DO NOT drive, drink alcohol, operate machinery, or perform dangerous activities today. You were given medications in the ER that can affect your ability to safely function or operate a vehicle. Hydrocodone/Acetaminophen (Mantador) 5/325 mg: Take 1-2 pills every four hours for breakthrough pain. Avoid alcohol, operating machinery or dangerous equipment, working on ladders or roofs, DRIVING, or situations where being under the influence may be dangerous. It is recommended to use an [id number] stool softener such as Colace, 100mg twice daily while taking this medication to avoid constipation. Cyclobenzaprine (Flexeril) 10 mg: Take 1 pills 3 times daily as needed for muscle spasms.. Avoid alcohol, operating machinery or dangerous equipment, working on ladders or roofs, DRIVING, or situations where being under the influence may be dangerous. Ibuprofen(Motrin, Advil) may be used for fever or pain. Use 600mg every six hours as needed. Take with food. Avoid using more than 2400mg in a 24 hour period. Do not use 2400mg per day for more than three consecutive days without physician direction. Prolonged inappropriate use can lead to stomach upset or ulcers. This medication can be taken if you need to drive, work, or perform activities which may be dangerous when taking narcotic pain medication. Rest and avoid heavy lifting until your symptoms resolve and then gradually return to full activity. A good rule of thumb is if it hurts your back to perform a certain activity, then it should be avoided until you are healthy again. A heating pad, warm compresses, or a hot shower may help with tight muscles and can be done several times a day as needed. Continue current medications. Return to the ER immediately for any numbness, tingling, severe pain, loss of control of your bowels or bladder, inability to walk, or as needed. Follow up with your primary care physician within 3-5 days for a recheck of your current condition. Problem Qualifiers Primary Impression: Thoracic myofascial strain Encounter type: initial encounter Qualified Codes: S29.019A - Strain of muscle and tendon of unspecified wall of thorax, initial encounter
[2017-01-04 19:09] VITALS: BP 123/76; PULSE 73; O2SAT 98
== END 2017-01-04 19:10 | disposition home or self-care (01) ==
LOC: C.EDB 17:00 → C.EDD 19:10
DX: S29.019A Strain of muscle and tendon of unspecified wall of thorax, initial encounter (principal); X50.1XXA Overexertion from prolonged static or awkward postures, initial encounter; F41.9 Anxiety disorder, unspecified; J45.909 Unspecified asthma, uncomplicated; F32.9 Major depressive disorder, single episode, unspecified; K58.9 Irritable bowel syndrome, unspecified; I34.1 Nonrheumatic mitral (valve) prolapse; Z72.0 Tobacco use; Z79.899 Other long term (current) drug therapy

== ENCOUNTER → 2017-02-06 | Outpatient (CLI) | payer OTHER ==
[~2017-02-06] MED LIST changes: +CLR10 PO; -GABA800T PO; +HYDR-5688 PO; -OXCA150T2 PO; -OXCA600T2 PO; +PRLSR20 PO; -QUET200T2 PO; +psych med PO
== END | disposition home or self-care (01) ==
LOC: C.LABSPEC 17:20
PROVIDERS: ATTEND Physician Assistant
DX: N89.8 Other specified noninflammatory disorders of vagina (principal)

== ENCOUNTER 2017-02-25 01:18 | Emergency (ER) | payer OTHER ==
[~2017-02-25] VITALS: Ht 156.2 cm; Wt 65.4 kg
[2017-02-25 01:23] VITALS: TEMP 36.7; Ht 156.2 cm; Wt 65.4 kg
[2017-02-25] MEDS ORDERED: LORAZEPAM 2 MG/ML 1 ML VIAL IV STA (01:46)
[2017-02-25 01:49] VITALS: O2SAT 99
[2017-02-25 02:02] LABS: BASO % 0.3 %; BASO ABS # 0.03 K/uL (0-0.2); COMPLETE YES; HEMATOCRIT 42.3 % (37-47); IG% 0.2 %; LYMPH ABS # 3.19 K/uL (1.2-3.4); MEAN CELL VOLUME 95.7 fL (80-100); MEAN CORPUSCULAR HEMOGLOBIN 32.6 pg (25-34); MEAN PLATELET VOLUME 11.9 fL (7.4-10.4); MONO % 8.5 %; PLATELET COUNT 260 K/uL (130-400); RED BLOOD COUNT 4.42 M/uL (4.2-5.4); WHITE BLOOD COUNT 9.67 K/uL (4.8-10.8)
[2017-02-25 02:09] LABS: POINT OF CARE TROPONIN I < 0.030 ng/ml (0-0.045)
[2017-02-25 02:12] LABS: ALT/SGPT 14 U/L (12-78); AST/SGOT 7 U/L (15-37); BLOOD UREA NITROGEN 13 mg/dl (7-18); BUN/CREATININE RATIO 16.6 (10-20); CALCIUM 8.9 mg/dl (8.5-10.1); CARBON DIOXIDE 24 mmol/L (21-32); CHLORIDE 111 mmol/L (98-107); GLUCOSE 72 mg/dl (70-99); MAGNESIUM 2.1 mg/dl (1.8-2.4); POTASSIUM 3.7 mmol/L (3.5-5.1); SODIUM 143 mmol/L (136-145)
[2017-02-25 02:23] LABS: ALKALINE PHOSPHATASE 71 U/L (45-117); PREG INTERNAL NEGATIVE QC NEG CLEAR BACKGROUND; PREG INTERNAL POSITIVE QC POS CONTROL LINE
[2017-02-25] MEDS ORDERED: OPTIRAY 320 IV PRN (02:30)
--- NOTE | 2017-02-25 04:16 | EMERGENCY ROOM VISIT NOTE ---
History First contact with patient: :23 Chief Complaint: CHEST PAIN Stated Complaint: CHEST PAIN,SHAKY,COLD Nursing Triage Summary: hx panic attacks, and cardiac history (never to dipper and drier) ECG's show LBBB. chest pain started 2 days ago in L upper chest. radiates to back. no injury, lifting, or muscle strain per pt. associates. chills. no nausea or vomiting. pt states last night she felt her heart was fluttering and she felt palpitations. kept pt up for a little while then subsided and pt was able to fall asleep. pt states she has been playing symptoms off as anxiety but tonight symptoms were intolerable. History of Present Illness The patient is a 41 year old female who presents to the Emergency Room with complaints of left-sided chest pain for the past day that comes and goes in severity occasion radiates to her back into her shoulder discomfort as aching, ranging in severity 5 out of 10. Nothing makes it better or worse. Patient states she's been under stress lately. She feels overwhelmed. She does have a therapist that she sees Zulma appointment next week. No suicidal or homicidal ideations. Patient feels as if her anxiety is exacerbating her symptoms. Patient states she's had heart disease before. No stress test or echo in the past. She does not have a dipper and drier. She continues to smoke. Patient denies dyspnea, recent travel, leg pain or swelling, abdominal pain, vomiting, diarrhea, cough, congestion, cold symptoms. She smokes marijuana but no other illegal drugs. No family history of heart disease. There is a family history of blood clots. Review of Systems See HPI for pertinent positives & negatives. A total of 10 systems reviewed and were otherwise negative. Past Medical/Surgical History Medical Problems: (1) Abnormal EKG (2) Acute bronchitis (3) Anxiety State Nos (4) Asthma W/O Status Asthm (5) Back pain (6) Bronchitis (7) Cervical radiculopathy (8) Depressive Disorder Nec (9) Edema of upper extremity (10) Elbow pain, left (11) Injury of elbow (12) Irritable Bowel Syndrome Without Diarrhea (13) Mitral valve prolapse (14) Pleuritic chest pain (15) Radial head fracture (16) Right otitis media (17) Stress (18) Tobacco dependence Family History FHx: heart disease Social History Smoking Status: Current Every Day Smoker Alcohol Use: occasionally Drug Use: marijuana Marital Status: Occupation Status: student Current/Historical Medications No Active Prescriptions or Reported Meds Physical Exam Vital Signs Date Time Temp Pulse Resp B/P (MAP) Pulse Ox O2 Delivery O2 Flow Rate FiO2 02/25/17 03:58 64 18 114/80 98 Room Air 02/25/17 03:00 67 18 107/74 96 Room Air 02/25/17 02:14 73 18 116/82 98 Room Air 02/25/17 01:49 99 Room Air 02/25/17 01:44 77 02/25/17 01:23 36.7 84 18 119/80 99 Room Air 02/25/17 01:23 99 Room Air 02/25/17 01:23 99 Room Air Physical Exam VITALS: Vitals are noted on the nurse's note and reviewed by myself. Vital signs stable. GENERAL: Pleasant female tearful and anxious-appearing, in no acute distress, nondiaphoretic, well-developed well-nourished. SKIN: The skin was without rashes, erythema, edema, or bruising. There is no tenting of the skin. Capillary reflex less than 2 seconds. HEAD: Normocephalic atraumatic. EARS: External auditory canals clear, tympanic membranes pearly pugh without erythema or effusion bilaterally. EYES: Pupils equal round and reactive to light and accommodation. Conjunctivae without injection, sclerae without icterus. Extraocular movements intact. NOSE: Patent, turbinates without inflammation or discharge. MOUTH: Mucous membranes moist. Pharynx without erythema or exudate. Uvula midline. Airway patent. Tongue does not deviate. NECK: Supple without nuchal rigidity. No lymphadenopathy. No thyromegaly. Cervical spine is nontender. No JVD. HEART: Regular rate and rhythm without murmurs gallops or rubs. LUNGS: Clear to auscultation bilaterally without wheezes, rales or rhonchi. No dullness to percussion. No retractions or accessory muscle use. Chest nontender to palpation ABDOMEN: Positive bowel sounds x 4. Normal tympanic percussion. Soft, nontender, without masses or organomegaly. Ashton sign negative. No guarding or rebound tenderness. MUSCULOSKELETAL: No muscle atrophy, erythema, or edema noted. NEURO: Patient was alert and oriented to person place and time. Normal sensation to light and sharp touch. No focal neurological deficits. Medical Decision & Procedures Laboratory Results 02/25/17 01:30 Red Blood Count 4.42, Mean Corpuscular Volume 95.7, Mean Corpuscular Hemoglobin 32.6, Mean Corpuscular Hemoglobin Concent 34.0, Mean Platelet Volume 11.9, Neutrophils (%) (Auto) 57.0, Lymphocytes (%) (Auto) 33.0, Monocytes (%) (Auto) 8.5, Eosinophils (%) (Auto) 1.0, Basophils (%) (Auto) 0.3, Neutrophils # (Auto) 5.51, Lymphocytes # (Auto) 3.19, Monocytes # (Auto) 0.82, Eosinophils # (Auto) 0.10, Basophils # (Auto) 0.03 02/25/17 01:30 Test 02/25/17 01:30 02/25/17 01:50 02/25/17 03:57 White Blood Count 9.67 K/uL (4.8-10.8) Red Blood Count 4.42 M/uL (4.2-5.4) Hemoglobin 14.4 g/dL (12.0-16.0) Hematocrit 42.3 % (37-47) Mean Corpuscular Volume 95.7 fL (80-100) Mean Corpuscular Hemoglobin 32.6 pg (25-34) Mean Corpuscular Hemoglobin Concent 34.0 g/dl (32-36) Platelet Count 260 K/uL (130-400) Mean Platelet Volume 11.9 fL (7.4-10.4) Neutrophils (%) (Auto) 57.0 % Lymphocytes (%) (Auto) 33.0 % Monocytes (%) (Auto) 8.5 % Eosinophils (%) (Auto) 1.0 % Basophils (%) (Auto) 0.3 % Neutrophils # (Auto) 5.51 K/uL (1.4-6.5) Lymphocytes # (Auto) 3.19 K/uL (1.2-3.4) Monocytes # (Auto) 0.82 K/uL (0.11-0.59) Eosinophils # (Auto) 0.10 K/uL (0-0.5) Basophils # (Auto) 0.03 K/uL (0-0.2) RDW Standard Deviation 48.8 fL (36.4-46.3) RDW Coefficient of Variation 13.9 % (11.5-14.5) Immature Granulocyte % (Auto) 0.2 % Immature Granulocyte # (Auto) 0.02 K/uL (0.00-0.02) Anion Gap 8.0 mmol/L (3-11) Est Creatinine Clear Calc Drug Dose 81.9 ml/min Estimated GFR () 106.9 Estimated GFR (Non- 92.2 BUN/Creatinine Ratio 16.6 (10-20) Calcium Level 8.9 mg/dl (8.5-10.1) Magnesium Level 2.1 mg/dl (1.8-2.4) Total Bilirubin 0.3 mg/dl (0.2-1) Direct Bilirubin < 0.1 mg/dl (0-0.2) Aspartate Amino Transf (AST/SGOT) 7 U/L (15-37) Alanine Aminotransferase (ALT/SGPT) 14 U/L (12-78) Alkaline Phosphatase 71 U/L (45-117) Troponin I < 0.015 ng/ml (0-0.045) Total Protein 6.9 gm/dl (6.4-8.2) Albumin 3.6 gm/dl (3.4-5.0) Lipase 490 U/L (73-393) Thyroid Stimulating Hormone (TSH) 1.380 uIu/ml (0.300-4.500) Human Chorionic Gonadotropin, Qual NEG (NEG) Bedside D-Dimer > 450 ng/mlFEU (0-450) Bedside Troponin I < 0.030 ng/ml (0-0.045) Medications Administered Medications (Trade) Dose Ordered Sig/Radha Route Start Time Stop Time Status Last Admin Dose Admin Lorazepam (Ativan Inj) 1 mg NOW STAT IV 02/25/17 01:46 02/25/17 01:47 DC 02/25/17 01:56 1 MG ED Course Prior records/ancillary studies reviewed. Triage Nursing notes reviewed. Additional history obtained from family The patient's history was concerning for chest pain. Differential diagnosis: Etiologies such as cardiac ischemia, aortic dissection, pulmonary embolism, pneumonia, pneumothorax, musculoskeletal, infections, pericarditis, myocarditis , esophageal rupture, gastrointestinal, as well as others were entertained. Physical examination: As above. ER treatment provided: ativan On reassessment the patient felt better. Diagnostic interpretation by me: The electrocardiogram was normal sinus, normal axis, old septal infarct per chart review, no acute ST-T wave changes, rate of 76. Impression normal sinus rhythm with old septal infarct per chart review and interpreted by myself The labs revealed 2 troponins are negative there were greater than 2 hours apart. Elevated d-dimer and sent for CTA. Markedly elevated lipase. Imaging studies: Chest x-ray with no acute pneumonia, pneumothorax or free air per my interpretation Exam and history seem consistent with chest pain unlikely to be cardiac in etiology. Patient had unremarkable workup as above. 2 troponins that were negative that were 2 hours apart. Unchanged EKG. She is strongly encouraged to follow-up with family care in a few days or here in the ER sooner for chest pain, difficulty breathing, worsening signs or symptoms or as needed. Patient felt much better after the Ativan. She was given a short supply. By the evaluation outlined above emergent etiologies such as cardiac ischemia, aortic dissection, pulmonary embolism, pneumonia, pneumothorax, infections, pericarditis, myocarditis, gastrointestinal, as well as others were deemed relatively unlikely. The pt informed about the findings as listed above. All questions were answered and pleased with the treatment. Return instructions were outlined and the patient was discharged in stable condition. Outpatient prescription management: Ativan Referral: The patient was referred back to primary care physician and her therapist for follow-up in 2 to 3 days for a recheck of the current condition. Case reviewed with my attending Medical Decision As above Medication Reconcilliation Current Medication List: was personally reviewed by me Blood Pressure Screening Patient's blood pressure: Normal blood pressure Impression Primary Impression: Precordial chest pain Additional Impression: Anxiety Departure Information Dispostion Home / Self-Care Condition GOOD Prescriptions No Active Prescriptions or Reported Meds Referrals No Doctor, Assigned (PCP) Patient Instructions My [facility] Additional Instructions DO NOT drive, drink alcohol, operate machinery, or perform dangerous activities today. You were given medications in the ER that can affect your ability to safely function or operate a vehicle. Ativan 1 m tablet every 8 hours as needed for anxiety. No alcohol or driving on this medication. Ibuprofen(Motrin, Advil) may be used for fever or pain. Use 600mg every six hours as needed. Take with food. Avoid using more than 2400mg in a 24 hour period. Do not use 2400mg per day for more than three consecutive days without physician direction. Prolonged inappropriate use can lead to stomach upset or ulcers. (AND/OR) Acetaminophen(Tylenol) may be used for fever or pain. Use 1000mg every six hours as needed. Avoid using more than 3000mg in a 24 hour period. Rest and drink plenty of fluids as tolerated. Continue current medications. Avoid strenuous activities and anything that worsens your pain. Resume normal activities once your symptoms resolve. Return to the ER immediately for worsening or persistent chest pain, abdominal pain, vomiting, fevers, chest pains, difficulty breathing, worsening of your condition, or as needed. Follow up with your primary physician in 2-3 days for a recheck of your current condition. Problem Qualifiers
[2017-02-25] MEDS ORDERED: ATIVAN 1MG HOMEPACK PO ONE (04:30)
[2017-02-25 04:37] VITALS: BP 103/70; PULSE 64; O2SAT 96
--- NOTE | 2017-02-25 06:44 | DIAGNOSTIC IMAGING REPORT ---
CT ANGIOGRAM OF THE CHEST CLINICAL HISTORY: Atypical chest pain. Left bundle-branch block. Proceed arrhythmia. COMPARISON STUDY: Chest x-ray dated 02/25/2017 TECHNIQUE: Following the IV administration of 93 mL of [id number]-320, CT angiogram of the thorax was performed from the thoracic inlet to the lung bases utilizing the pulmonary embolus protocol. Images are reviewed in the axial, sagittal, and coronal planes. IV contrast was administered without complication. MIP imaging was performed. A dose lowering technique was utilized adhering to the principles of ALARA. CT DOSE: 184.59 mGy.cm FINDINGS: No pathologically enlarged axillary mediastinal or hilar lymph nodes were visualized. There was no evidence of thoracic aortic dilatation. There were no pulmonary artery filling defects to indicate acute pulmonary embolism. No pleural effusions are visualized. There are dependent atelectatic changes. There is no focal pulmonary consolidation. There are few scattered lung cysts. IMPRESSION: 1. No evidence of acute pulmonary embolism 2. No evidence of focal pulmonary consolidation 3. No evidence of pathologic adenopathy Electronically signed by: Gabe Koo M.D. 02/25/2017 6:42 AM Dictated Date/Time: 02/25/2017 6:39 AM
--- NOTE | 2017-02-25 06:56 | DIAGNOSTIC IMAGING REPORT ---
CHEST ONE VIEW PORTABLE CLINICAL HISTORY: Chest pain. COMPARISON STUDY: Chest radiograph December 04, 2015. FINDINGS: Lung volumes are normal. No pneumothorax or pleural effusion is present. Pulmonary vascularity is normal. Cardiomediastinal silhouette is normal. No consolidation is identified. IMPRESSION: No acute cardiopulmonary findings. Electronically signed by: Jimi Rodriguez M.D. 02/25/2017 6:55 AM Dictated Date/Time: 02/25/2017 6:54 AM
== END 2017-02-25 04:38 | disposition home or self-care (01) ==
LOC: C.EDB 01:19 → C.EDA 04:38
DX: R07.1 Chest pain on breathing (principal); F41.9 Anxiety disorder, unspecified; I34.1 Nonrheumatic mitral (valve) prolapse; F32.9 Major depressive disorder, single episode, unspecified; K58.9 Irritable bowel syndrome, unspecified; J45.909 Unspecified asthma, uncomplicated; F17.200 Nicotine dependence, unspecified, uncomplicated; Z87.81 Personal history of (healed) traumatic fracture; Z82.49 Family history of ischemic heart disease and other diseases of the circulatory system

== ENCOUNTER → 2017-03-04 | Outpatient (CLI) | payer OTHER ==
[2017-03-09 06:44] LABS: CHLAMYDIA TRACH RNA*** NOT DETECTED (NOT DETECTED); GC (NEIS GONORRHOEAE)RNA** NOT DETECTED (NOT DETECTED); TRICHOMONAS VAGINALIS RNA** DETECTED (NOT DETECTED)
== END | disposition home or self-care (01) ==
LOC: C.LABSPEC 13:27
PROVIDERS: ATTEND Physician Assistant
DX: N89.8 Other specified noninflammatory disorders of vagina (principal)

== ENCOUNTER → 2017-08-26 | Outpatient (CLI) | payer OTHER | END | disposition home or self-care (01) | LOC: C.LAB 14:07 | DX: Z02.83 Encounter for blood-alcohol and blood-drug test (principal) ==

== ENCOUNTER 2025-02-20 17:25 | Inpatient (IN) ==
[2025-02-20] MEDS: OPTIRAY 320 125ml IV ONE (17:35)
--- NOTE | 2025-02-20 17:55 | CT Scan Report ---
Clinical history: Double vision and facial droop. Technique: Axial computed tomography images were obtained of the neck after the administration of intravenous contrast according to the CT angiogram protocol Findings: No stenosis is seen of the common carotid arteries bilaterally. The carotid bulbs appear normal. The remainder of the internal carotid arteries appear patent bilaterally. No stenosis of the external carotid arteries is seen The vertebral arteries are patent bilaterally with no significant stenosis seen. The visualized thoracic aorta appears unremarkable There is mild emphysema involving the lung apices Impression: Unremarkable CTA of the neck These findings were discussed with Dr. Meadows at 5:53 PM on 02/20/2025 Electronically signed by Cuauhtemoc Stovall 02-20-2025 5:53 PM
--- NOTE | 2025-02-20 17:55 | CT Scan Report ---
Clinical History: Double vision and facial droop. Technique: Axial computed tomography images were obtained of the brain after the administration of intravenous contrast according to the CT angiogram protocol Findings: No definite stenosis or aneurysm is seen of the anterior, middle, or posterior cerebral artery circulations. The visualized vertebral arteries and the basilar artery appear unremarkable Impression: No definite stenosis or aneurysm of the intracranial arteries These findings were discussed with Dr. Meadows at 5:53 PM on 02/20/2025 Electronically signed by Cuauhtemoc Stovall 02-20-2025 5:54 PM
--- NOTE | 2025-02-20 17:55 | CT Scan Report ---
Clinical History: Double vision and facial droop. Technique: Axial computed tomography images were obtained of the brain from the vertex to the skull base without intravenous contrast. Findings: There is no sign of intracranial hemorrhage. There is normal pugh-white matter differentiation with no sign of acute or old infarction. No midline shift or other form of herniation is identified. There is no hydrocephalus. No obvious mass lesion is seen on this noncontrast examination. The visualized portions of the orbits and paranasal sinuses appear unremarkable. The mastoid air cells appear clear Impression: Unremarkable noncontrast CT of the brain These findings were discussed with Dr. Meadows at 5:53 PM on 02/20/2025 Electronically signed by Cuauhtemoc Stovall 02-20-2025 5:54 PM
[2025-02-20 18:14] LABS: Hematocrit (blood only) 39.5 % (37.0-47.0); Hemoglobin 12.8 g/dl (12.0-16.0); Immature Granulocytes # (auto) 0.04 K/uL (0.01-0.20); Immature Granulocytes % (auto) 0.5 %; Mean Corpuscular Hemoglobin 29.8 pg (25.0-34.0); Mean Corpuscular Volume 92.1 fL (80.0-100.0); Platelet Count 233 K/uL (130-400); RDW Standard Deviation 46.0 fL (36.4-46.3); Red Blood Count 4.29 M/uL (4.20-5.40); White Blood Count 8.10 K/ul (4.8-10.8)
[2025-02-20] MEDS ORDERED: ATORVASTATIN 40 MG TAB PO SCH (18:15)
[2025-02-20] MEDS ORDERED: No Aspirin within 24hrs of THROMBOLYTIC-Stroke PO SCH (18:15)
[2025-02-20] MEDS: TENECTEPLASE 24 MG in SYRINGE 0 ML IV ONE (18:23)
[2025-02-20 18:31] LABS: Alanine Aminotransferase 11.0 U/L (7-52); Albumin Globulin Ratio 1.5 (0.9-2); Albumin Level 3.5 gm/dl (3.4-5.0); Alkaline Phosphatase 77.0 U/L (34-104); Anion Gap 3.0 (3-11); Bilirubin,Total 0.3 mg/dl (0.2-1.0); Blood Urea Nitrogen 14.0 mg/dl (6-23); Calcium 8.7 mg/dl (8.6-10.3); Carbon Dioxide 27.0 mmol/L (21-32); Chloride 105.0 mmol/L (98-107); Creatinine Clr Calc Pharmacy 80.0 ml/min; Globulin 2.4 gm/dl (2.5-4.0); Glucose 109.0 mg/dl (70-99(Fasting)); Magnesium 1.9 mg/dl (1.7-2.4); Potassium 4.3 mmol/L (3.5-5.1); Sodium 135.0 mmol/L (136-145); Total Protein 5.9 gm/dl (6.0-8.3)
[2025-02-20 18:51] LABS: INR 1.0 (0.9-1.1); Partial Thromboplastin Time 24 Seconds (21-31); Prothrombin Time 10.1 Seconds (9.0-12.0)
--- NOTE | 2025-02-20 19:02 | Emergency Department Note ---
History of Present Illness General Chief complaint: Stroke Alert Stated complaint: Neuro symptoms Time Seen by Provider: 02/20/25 17:27 History of Present Illness Provider complaint: Stroke alert 49-year-old female presents emergency department stroke alert. Per EMS the patient at 3 PM started having double vision, right-sided facial droop, and weakness. No blood thinners. No falls or traumas. No headache. Home Medications Medication Instructions Recorded Confirmed Type omeprazole 20 mg capsule,delayed 20 mg PO BID 11/13/19 02/20/25 History release prazosin 1 mg capsule 1 mg PO HS 02/03/23 02/20/25 History aspirin 81 mg tablet,delayed 81 mg PO QAM 02/20/25 02/20/25 History release cariprazine 3 mg capsule (Vraylar) 3 mg PO HS 02/20/25 02/20/25 History famotidine 40 mg tablet 40 mg PO HS 02/20/25 02/20/25 History ferrous sulfate 325 mg (65 mg 325 mg PO QAM 02/20/25 02/20/25 History iron) tablet gabapentin 300 mg capsule 300 mg PO TID PRN Pain 02/20/25 02/20/25 History mirtazapine 30 mg tablet 30 mg PO HS 02/20/25 02/20/25 History Allergies Allergy/AdvReac Type Severity Reaction Status Date / Time ciprofloxacin Allergy Intermediate hot, rash Verified 02/20/25 18:46 erythromycin base Allergy Intermediate b/p Verified 02/20/25 18:46 elevates, rash Macrolide Antibiotics Allergy Mild Unknown Verified 02/20/25 18:46 Penicillins Allergy Mild Unknown Verified 02/20/25 18:46 Sulfa (Sulfonamide Allergy Mild Unknown Verified 02/20/25 18:46 Antibiotics) vancomycin AdvReac Severe red, hot, Verified 02/20/25 18:46 rash cephalexin AdvReac Intermediate rash Verified 02/20/25 18:46 steroid AdvReac Mild agitation Uncoded 02/20/25 18:46 and "flips out" Past Med/Surg History Problem List (Updated 02/20/25 @ 20:18 by Yusef Meadows MD) Acute CVA (cerebrovascular accident) (Acute) H/O ventral hernia repair (12/18/22) Laparoscopic Recurrent Ventral Hernia Repair with Mesh(Not Applicable) - Jake Brito, DO Back pain Acute bronchitis Pleuritic chest pain Thoracic myofascial strain (Acute) Incontinence Dysuria Mixed incontinence Encounter for pre-operative examination Colon cancer screening Abdominal hernia Recurrent ventral hernia Medical History Mitral regurgitation moderate, referred to valve clinic for potential replacement Diverticulosis History of colon polyps PONV (postoperative nausea and vomiting) GERD (gastroesophageal reflux disease) Irritable bowel syndrome without diarrhea Bipolar I disorder, single manic episode History of ID (myocardial infarction) 2020 medical management with cardio ([place] [facility]) Anxiety and depression Surgical History History of colonoscopy Hx of laparoscopy multiple Hx laparoscopic cholecystectomy History of oral surgery all teeth removed History of tonsillectomy Hx of hysterectomy History of placement of ear tubes X 2 Social History Smoking Status: Former smoker Tobacco Type: Cigarettes and E-cigarettes / Vaping Cigarettes Per Day: 1ppd; Second Hand Exposure: No; Do You Dip or Chew Tobacco: No; Hx Alcohol Use: No Hx Substance Use: Yes (medical marijuana) Last Used Substance: Days (ago) Last Used Substance Other:: advised Preferred Language: Colombian Communication Ability: Effective Visual Impairment: No Limitations Family Law Specialist Required: No Beliefs That Will Affect Care: None marital status: Current Living Situation: Family current occupational status: disabled Feels Safe at Home: Yes Diet: regular during the past year weight has: decreased > 10 lbs Assistive Devices: Contacts, Denture - Upper, Denture - Lower and Glasses Physical Exam Vital Signs Vital Signs - 24 hr 02/20/25 17:29 02/20/25 18:05 02/20/25 18:20 Temperature 36.7 C Temperature Source Oral Pulse Rate 81 83 Pulse Rate [Right Finger] 86 Pulse Rhythm [Right Finger] Regular Pulse Strength [Right Finger] Normal Respiratory Rate 22 28 H Respiratory Effort / Characteristics Non-Labored Spontaneous Non-Labored Respiratory Depth Normal Normal Respiratory Pattern Regular Regular Blood Pressure 124/96 Blood Pressure [Right Arm] 118/94 Blood Pressure Mean 105 Blood Pressure Mean [Right Arm] 102 Blood Pressure Position [Right Arm] Pulse Oximetry 97 97 Oxygen Delivery Method Room Air Room Air Sepsis Recent Fever Within 48 Hours No Sepsis New/Unexplained Change in Mental Status No Sepsis Action Taken by Nursing No Action Required 02/20/25 18:23 02/20/25 18:39 02/20/25 18:53 Temperature 36.6 C 36.4 C L Temperature Source Oral Oral Pulse Rate Pulse Rate [Right Finger] 101 H 86 84 Pulse Rhythm [Right Finger] Regular Regular Regular Pulse Strength [Right Finger] Normal Normal Normal Respiratory Rate 16 22 22 Respiratory Effort / Characteristics Non-Labored Non-Labored Non-Labored Respiratory Depth Normal Normal Normal Respiratory Pattern Regular Regular Blood Pressure Blood Pressure [Right Arm] 129/86 115/88 105/83 Blood Pressure Mean Blood Pressure Mean [Right Arm] 100 97 90 Blood Pressure Position [Right Arm] Lying Lying Lying Pulse Oximetry 96 98 98 Oxygen Delivery Method Room Air Room Air Room Air Sepsis Recent Fever Within 48 Hours Sepsis New/Unexplained Change in Mental Status Sepsis Action Taken by Nursing 02/20/25 19:08 02/20/25 19:23 02/20/25 19:25 Temperature 36.6 C 36.6 C Temperature Source Oral Oral Pulse Rate Pulse Rate [Right Finger] 84 85 87 Pulse Rhythm [Right Finger] Regular Pulse Strength [Right Finger] Normal Respiratory Rate 18 20 17 Respiratory Effort / Characteristics Non-Labored Spontaneous Non-Labored Spontaneous Non-Labored Respiratory Depth Normal Normal Normal Respiratory Pattern Regular Regular Regular Blood Pressure Blood Pressure [Right Arm] 115/81 119/82 120/87 Blood Pressure Mean Blood Pressure Mean [Right Arm] 92 94 98 Blood Pressure Position [Right Arm] Lying Lying Pulse Oximetry 96 96 97 Oxygen Delivery Method Room Air Room Air Room Air Sepsis Recent Fever Within 48 Hours Sepsis New/Unexplained Change in Mental Status Sepsis Action Taken by Nursing 02/20/25 19:40 02/20/25 19:55 02/20/25 20:00 Temperature Temperature Source Pulse Rate Pulse Rate [Right Finger] 88 75 84 Pulse Rhythm [Right Finger] Pulse Strength [Right Finger] Respiratory Rate 17 17 16 Respiratory Effort / Characteristics Non-Labored Spontaneous Non-Labored Non-Labored Spontaneous Respiratory Depth Normal Normal Normal Respiratory Pattern Regular Regular Regular Blood Pressure Blood Pressure [Right Arm] 124/88 116/86 116/83 Blood Pressure Mean Blood Pressure Mean [Right Arm] 100 96 94 Blood Pressure Position [Right Arm] Pulse Oximetry 97 97 98 Oxygen Delivery Method Room Air Room Air Room Air Sepsis Recent Fever Within 48 Hours Sepsis New/Unexplained Change in Mental Status Sepsis Action Taken by Nursing 02/20/25 20:10 Temperature Temperature Source Pulse Rate Pulse Rate [Right Finger] 85 Pulse Rhythm [Right Finger] Pulse Strength [Right Finger] Respiratory Rate 16 Respiratory Effort / Characteristics Non-Labored Spontaneous Respiratory Depth Normal Respiratory Pattern Regular Blood Pressure Blood Pressure [Right Arm] 118/80 Blood Pressure Mean Blood Pressure Mean [Right Arm] 92 Blood Pressure Position [Right Arm] Pulse Oximetry 97 Oxygen Delivery Method Room Air Sepsis Recent Fever Within 48 Hours Sepsis New/Unexplained Change in Mental Status Sepsis Action Taken by Nursing Physical Exam GENERAL: oriented to person, place, and time. appears well-developed and well- nourished. HENT: Exam performed. - Head: Normocephalic and atraumatic. EYES: Conjunctivae and EOM are normal. Right eye exhibits no discharge. Left eye exhibits no discharge. No scleral icterus. NECK: Normal range of motion. Neck supple. No JVD present. CV: Normal rate, regular rhythm, normal heart sounds and intact distal pulses. There is no peripheral edema. Palpable radial pulses bue. PULM/CHEST: Effort normal and breath sounds normal. No respiratory distress. No stridor. no wheezes. no rales. ABD: The abdomen is soft. There is no tenderness. NEURO: NIHSS 1 (4:1) Course Course 172: The patient was evaluated in CT. A complete physical exam was performed and the patient had a right-sided facial droop NIHSS of 1. 1732: CT of the head viewed by me shows no ICH 1746: The patient was evaluated in room B11. A complete history and physical exam was performed Cardiac monitoring: An order was placed for continuous cardiac monitoring. The monitor shows a rate of 80 with sinus rhythm interpreted by me On reassessment in the patient's room the patient's facial droop has resolved and the patient has an NIHSS of 0. I did discuss the case with the [facility] teleneurologist stroke Dr. Moreno and he states he would like to evaluate the patient. 1823: Dr. Alegria evaluated the patient via [place] telest[facility] and recommended TNKase on the patient. TNKase administered at this time. [facility], spoke with Dr. Longoria. 1851: Vital signs stable. After TNKase was administered nursing reported to me that the patient was having facial droop again. I reevaluated the patient did not appear to have any facial droop, motor deficits sensory deficit or cerebellar deficit. Repeat CT of the head was ordered for the patient. 0: Vital signs stable. CT of the head viewed by me does not show any ICH. 0: Vital signs stable. CT of the head read as negative by radiology also. Administered Medications Discontinued Medications Tenecteplase 24 mg/ Syringe 4.8 mls @ 57.6 mls/min IV NOW ONE; Protocol Stop: 02/20/25 18:24 Last Admin: 02/20/25 18:23 Dose: 57.6 mls/min Documented By: WISAM Co-signed By: NANCY Ioversol (Optiray 320 125ml) 115 ml IV ONCE ONE Stop: 02/20/25 17:36 Last Admin: 02/20/25 17:35 Dose: 115 ml Documented By: ANITRA Critical Care Time Critical Care Time: Yes Total Critical Care Time: 48 I have personally spent greater than 48 minutes of critical care time in the direct management of this patient. This includes bedside care, interpretation of diagnostic studies, and testing, discussion with consultants, patient, and family members, and other required patient management activities. This 48 minutes is in excess of all separately billable procedures. Medical Decision Making Laboratory Data Attestation: I reviewed the patient's lab results. 02/20/25 17:52 02/20/25 17:52 Lab Results 02/20/25 02/20/25 Range/Units 17:52 18:09 WBC 8.10 (4.8-10.8) K/ul RBC 4.29 (4.20-5.40) M/uL Hgb 12.8 (12.0-16.0) g/dl Hct 39.5 (37.0-47.0) % MCV 92.1 (80.0-100.0) fL MCH 29.8 (25.0-34.0) pg MCHC 32.4 (32.0-36.0) g/dL RDW Std Deviation 46.0 (36.4-46.3) fL RDW Coeff of Ruby 13.5 (11.5-14.5) % Plt Count 233 (130-400) K/uL MPV 11.2 (9.4-12.4) fL Immature Gran % (Auto) 0.5 % Neut % (Auto) 76.8 % Lymph % (Auto) 13.7 % Hall % (Auto) 7.7 % Eos % (Auto) 0.9 % Baso % (Auto) 0.4 % Neut # (Auto) 6.23 (1.40-6.50) K/uL Lymph # (Auto) 1.11 L (1.20-3.40) K/uL Hall # (Auto) 0.62 H (0.11-0.59) K/uL Eos # (Auto) 0.07 (0.00-0.50) K/uL Baso # (Auto) 0.03 (0.00-0.20) K/uL Immature Gran # (Auto) 0.04 (0.01-0.20) K/uL PT 10.1 (9.0-12.0) Seconds INR 1.0 (0.9-1.1) APTT 24 (21-31) Seconds PTT Ratio 0.9 Sodium 135 L (136-145) mmol/L Potassium 4.3 (3.5-5.1) mmol/L Chloride 105 (98-107) mmol/L Carbon Dioxide 27 (21-32) mmol/L Anion Gap 3 (3-11) BUN 14 (6-23) mg/dl Creatinine 0.90 (0.6-1.2) mg/dl Est Cr Clr Drug Dosing 80.0 ml/min eGFR 78.86 BUN/Creatinine Ratio 15.6 (10-20) Glucose 109 H (70-99(Fasting)) mg/dl Calcium 8.7 (8.6-10.3) mg/dl Magnesium 1.9 (1.7-2.4) mg/dl Total Bilirubin 0.3 (0.2-1.0) mg/dl AST 11 L (13-39) U/L ALT 11 (7-52) U/L Alkaline Phosphatase 77 (34-104) U/L Troponin I High Sens 3.2 (0-14) pg/ml Total Protein 5.9 L (6.0-8.3) gm/dl Albumin 3.5 (3.4-5.0) gm/dl Globulin 2.4 L (2.5-4.0) gm/dl Albumin/Globulin Ratio 1.5 (0.9-2) Blood Type A Negative Antibody Screen NEGATIVE Imaging Data Attestation: I personally reviewed and interpreted this imaging study as follows: My Impression: CT head: No ICH CT head status post TNKase: No ICH Radiologist's Impression: Chest X-Ray 02/20/25 17:29 Chest radiograph, one view History: Neuro deficit Comparison: None Findings: Single AP view of the chest performed. No focal consolidation or pleural effusion. No pneumothorax. The cardiomediastinal silhouette is within normal limits. Normal pulmonary vascularity. No evidence for lymphadenopathy. No visualized bony or soft tissue abnormality. Impression: Normal chest radiograph Electronically signed by Jake Price 02-20-2025 7:[address] 02/20/25 17:29 Clinical History: Double vision and facial droop. Technique: Axial computed tomography images were obtained of the brain from the vertex to the skull base without intravenous contrast. Findings: There is no sign of intracranial hemorrhage. There is normal pugh-white matter differentiation with no sign of acute or old infarction. No midline shift or other form of herniation is identified. There is no hydrocephalus. No obvious mass lesion is seen on this noncontrast examination. The visualized portions of the orbits and paranasal sinuses appear unremarkable. The mastoid air cells appear clear Impression: Unremarkable noncontrast CT of the brain These findings were discussed with Dr. Meadows at 5:53 PM on 02/20/2025 Electronically signed by Cuauhtemoc Stovall 02-20-2025 5:54 PM Head CTA 02/20/25 17:29 Clinical History: Double vision and facial droop. Technique: Axial computed tomography images were obtained of the brain after the administration of intravenous contrast according to the CT angiogram protocol Findings: No definite stenosis or aneurysm is seen of the anterior, middle, or posterior cerebral artery circulations. The visualized vertebral arteries and the basilar artery appear unremarkable Impression: No definite stenosis or aneurysm of the intracranial arteries These findings were discussed with Dr. Meadows at 5:53 PM on 02/20/2025 Electronically signed by Cuauhtemoc Stovall 02-20-2025 5:54 PM Neck CTA 02/20/25 17:29 Clinical history: Double vision and facial droop. Technique: Axial computed tomography images were obtained of the neck after the administration of intravenous contrast according to the CT angiogram protocol Findings: No stenosis is seen of the common carotid arteries bilaterally. The carotid bulbs appear normal. The remainder of the internal carotid arteries appear patent bilaterally. No stenosis of the external carotid arteries is seen The vertebral arteries are patent bilaterally with no significant stenosis seen. The visualized thoracic aorta appears unremarkable There is mild emphysema involving the lung apices Impression: Unremarkable CTA of the neck These findings were discussed with Dr. Meadows at 5:53 PM on 02/20/2025 Electronically signed by Cuauhtemoc Stovall 02-20-2025 5:[address] 02/20/25 18:51 Technique: Axial computed tomography images were obtained of the brain from the vertex to the skull base without intravenous contrast. Findings: There is no definite sign of intracranial hemorrhage. There is apparent contrast within the cerebral arteries and dural sinuses. There is normal pugh-white matter differentiation with no sign of acute or old infarction. No midline shift or other form of herniation is identified. There is no hydrocephalus. No obvious mass lesion is seen on this noncontrast examination. The visualized portions of the orbits and paranasal sinuses appear unremarkable. The mastoid air cells appear clear Impression: Unremarkable CT of the brain Electronically signed by Cuauhtemoc Stovall 02-20-2025 7:25 PM ECG Data Attestation: I personally reviewed and interpreted this ECG as follows: Rate (beats per minute): 82 Rhythm: + normal sinus ECG Intervals/blocks: + First degree AV block, + Normal QRS and + Normal QT-c ECG ST segments: + Normal ST segments MDM Narrative 1727: The patient was evaluated in CT. A complete physical exam was performed and the patient had a right-sided facial droop NIHSS of 1. 1732: CT of the head viewed by me shows no ICH 1746: The patient was evaluated in room B11. A complete history and physical exam was performed Cardiac monitoring: An order was placed for continuous cardiac monitoring. The monitor shows a rate of 80 with sinus rhythm interpreted by me On reassessment in the patient's room the patient's facial droop has resolved and the patient has an NIHSS of 0. I did discuss the case with the [place] teleneurologist stroke Dr. Moreno and he states he would like to evaluate the patient. 1823: Dr. Alegria evaluated the patient via [place] tel[facility] and recommended TNKase on the patient. TNKase administered at this time. Patient will be admitted to the [facility] hospitalist team, spoke with Dr. Longoria. 185: Vital signs stable. After TNKase was administered nursing reported to me that the patient was having facial droop again. I reevaluated the patient did not appear to have any facial droop, motor deficits sensory deficit or cerebellar deficit. Repeat CT of the head was ordered for the patient. 1920: Vital signs stable. CT of the head viewed by me does not show any ICH. 0: Vital signs stable. CT of the head read as negative by radiology also. Impression & Plan Acute CVA (cerebrovascular accident) Discharge Plan Visit Data Chief Complaint: Stroke Alert Stated Complaint: Neuro symptoms ED Provider: Yusef Meadows Discharge Problem: Acute CVA (cerebrovascular accident) Patient Disposition: Admitted As Inpatient Condition: Serious Forms Stand Alone Forms: My [facility] Prescriptions Prescriptions: No Action prazosin 1 mg capsule 1 mg PO HS omeprazole 20 mg capsule,delayed release(DR/EC) 20 mg PO BID famotidine 40 mg tablet 40 mg PO HS aspirin 81 mg Tablet,Delayed Release (Dr/Ec) 81 mg PO QAM mirtazapine 30 mg tablet 30 mg PO HS ferrous sulfate 325 mg (65 mg iron) tablet 325 mg PO QAM gabapentin 300 mg capsule 300 mg PO TID PRN (Reason: Pain) Vraylar 3 mg capsule 3 mg PO HS Referrals Referrals: John Robertson PA-C [Primary Care Provider] -
--- NOTE | 2025-02-20 19:25 | CT Scan Report ---
Technique: Axial computed tomography images were obtained of the brain from the vertex to the skull base without intravenous contrast. Findings: There is no definite sign of intracranial hemorrhage. There is apparent contrast within the cerebral arteries and dural sinuses. There is normal pugh-white matter differentiation with no sign of acute or old infarction. No midline shift or other form of herniation is identified. There is no hydrocephalus. No obvious mass lesion is seen on this noncontrast examination. The visualized portions of the orbits and paranasal sinuses appear unremarkable. The mastoid air cells appear clear Impression: Unremarkable CT of the brain Electronically signed by Cuauhtemoc Stovall 02-20-2025 7:25 PM
--- NOTE | 2025-02-20 19:44 | History & Physical Report ---
Date of Service February 20, 2025 Assessment & Plan (1) Stroke-like symptoms: Plan 49-year-old female PMHx bipolar 1 disorder, IBS, GERD, MR, and thoracic myofascial strain presenting for complaints of diplopia and dysarthria starting at 1400-day of arrival. Her evaluation is significant for mildly decreased sodium at 135, but otherwise unremarkable workup. EKG does reveal first-degree AV block at 82 bpm. Patient without neuro-deficits at time of admission. #Stroke-like symptoms/? CVA Presenting with complaints of L sided blurred vision and reports of dysarthria starting 1400-day of arrival. Evaluated by Dr. Alegria via [place] [facility] telestroke who recommended TNKase. Patient received TNKase in ED. History of migraines many years ago, never without focal deficits. No history of TIA/CVA. Does wear contacts at baseline, follows with optho regularly. Started gabapentin ~ 1 week [employer], prescribed at [facility]ID dosing but more often takes BID. NIH 0 at time of admission. Still having some blurred vision L eye, no abnormalities on physical exam. - CBC, PT/INR grossly WNL; CMP sodium 135, glucose 109; troponin 3.2 - BMP am - CT head WNL; repeat post TNK also WNL - CTA head/neck unremarkable - EKG first-degree AV block 82 bpm - Echo with bubble pending - A1c 11/2024 @ 5.4% - Lipids 11/2024 total 187, LDL 114.2, HDL 33, TG 199 -- Atorvastatin 40 mg po daily - Allow for permissive hypertension - Hold prazosin night of admission - Hold gabapentin; ? contributing factor - ASA restart 24 hours post-TNKase - MRI pending - PT/OT ordered - appreciate assistance #GERD- Famotidine, omeprazole - continue #Psych- Vraylar, mirtazapine, ? prazosin - hold prazosin night of admission, continue other medications #Pain- Gabapentin recently started ~ 1 week ago for R hip pain- Hold at time of admission #CAD/MVR- S/p MV repair (Triangular resection + chordal tx with annuloplasty [address] Alford), follows with cardiology (most recent visit 10/27/2024); On ASA daily, also documented to be taking atorvastatin 40 mg? - Continue atorvastatin 40mg daily, restart ASA 24 hours post-TNKase Dispo: Admit, ICU VTE Prophylaxis: SCDs for now This document was dictated utilizing [employer]. Please excuse any grammatical errors that may be secondary to use of this software. Admission and Anticipated Discharge Date Admission Date: 02/20/2025 History of Present Illness Chief Complaint: Diplopia Primary Care Provider: John Robertson PA-C 49-year-old female PMHx bipolar 1 disorder, IBS, GERD, MR, and thoracic myofascial strain presenting for complaints of diplopia and dysarthria starting at 1400-day of arrival. Pt's fiance helps to provide a history. Reports that the patient was sitting in her chair playing on her phone when she called out to him saying that she "could not see." Explains that her vision was blurry after she had been looking at her phone for an extended period of time, as she reportedly does each morning. Her fiance, Rubio, then got her food to see if this would help but it did not change her symptoms. He reports that she started to speak oddly, making comments about her daughter getting her a candy bar, which was abnormal for the patient to say such a thing. He had his son, Umang, call 911 at that time. Pt reports that she is still having complaints of vision changes, but no other concerns. When she closes her L eye and only the R eye is open she feels that her vision is normal. When she changes, then her vision still feels "foggy." She denies headache or dizziness. No N/V. She does have a history of migraines "many years ago" that she had to "come to the ED for shots" to manage. Admits to occasional problems with her bowels, normally constipation. She denies chest pain, palpitations, abdominal pain, N/V/D, numbness/tingling, fever/chills, neck pain, numbness/tingling, weakness, dizziness, syncope, or falls. She received TNKase and momentarily felt worse, her fianc stating that he thought she seemed more confused after taking the medication, but has been pretty much back to baseline at the time of admission. She feels almost back to normal as well with exception of blurry vision in her left eye. Has never had this happen before. 2022 she had her mitral valve replaced, in 2023 she had a right hip replacement. She did recently start gabapentin approximately 1 week ago, it is ordered as 3 times daily but she has been taking it twice a day. ED evaluation reveals CBC WNL; PT/INR WNL; CMP sodium 135, glucose 109, AST 11, protein 5.9, globulin 2.4; troponin 3.2; CXR WNL; head CT unremarkable; head CTA no definite stenosis or aneurysm; neck CTA unremarkable; head CT repeat post TNK unremarkable; EKG sinus rhythm with first-degree AV block at 82 bpm.; Provided with TNK IV in ED. Please see Dr. Durham's attestation for adjustments/additions to treatment plan. Allergies Allergy/AdvReac Type Severity Reaction Status Date / Time ciprofloxacin Allergy Intermediate hot, rash Verified 02/20/25 18:46 erythromycin base Allergy Intermediate b/p Verified 02/20/25 18:46 elevates, rash Macrolide Antibiotics Allergy Mild Unknown Verified 02/20/25 18:46 Penicillins Allergy Mild Unknown Verified 02/20/25 18:46 Sulfa (Sulfonamide Allergy Mild Unknown Verified 02/20/25 18:46 Antibiotics) vancomycin AdvReac Severe red, hot, Verified 02/20/25 18:46 rash cephalexin AdvReac Intermediate rash Verified 02/20/25 18:46 steroid AdvReac Mild agitation Uncoded 02/20/25 18:46 and "flips out" Home Medications Medication Instructions Recorded Confirmed Type omeprazole 20 mg capsule,delayed 20 mg PO BID 11/13/19 02/20/25 History release prazosin 1 mg capsule 1 mg PO HS 02/03/23 02/20/25 History aspirin 81 mg tablet,delayed 81 mg PO QAM 02/20/25 02/20/25 History release cariprazine 3 mg capsule (Vraylar) 3 mg PO HS 02/20/25 02/20/25 History famotidine 40 mg tablet 40 mg PO HS 02/20/25 02/20/25 History ferrous sulfate 325 mg (65 mg 325 mg PO QAM 02/20/25 02/20/25 History iron) tablet gabapentin 300 mg capsule 300 mg PO TID PRN Pain 02/20/25 02/20/25 History mirtazapine 30 mg tablet 30 mg PO HS 02/20/25 02/20/25 History Past Med/Surg History Problem List (Updated 02/21/25 @ 10:57 by Julian Moss MD) Hypertension Cerebrovascular accident (CVA) of left thalamus Encounter for monitoring thrombolytic therapy Stroke-like symptoms Acute CVA (cerebrovascular accident) (Acute) H/O ventral hernia repair (12/18/22) Laparoscopic Recurrent Ventral Hernia Repair with Mesh(Not Applicable) - Jake Brito, Back pain Acute bronchitis Pleuritic chest pain Thoracic myofascial strain (Acute) Incontinence Dysuria Mixed incontinence Encounter for pre-operative examination Colon cancer screening Abdominal hernia Recurrent ventral hernia Medical History Mitral regurgitation moderate, referred to valve clinic for potential replacement Diverticulosis History of colon polyps PONV (postoperative nausea and vomiting) GERD (gastroesophageal reflux disease) Irritable bowel syndrome without diarrhea Bipolar I disorder, single manic episode History of [place] (myocardial infarction) 2020 medical management with cardio (Bing cards) Anxiety and depression Surgical History History of colonoscopy Hx of laparoscopy multiple Hx laparoscopic cholecystectomy History of oral surgery all teeth removed History of tonsillectomy Hx of hysterectomy History of placement of ear tubes X 2 Family History (Updated 02/21/25 @ 10:55 by Julian Moss MD) Mother Hypertension Heart disease Father , Patient has no information on father's medical problems or No problems noted. Social History (Updated 02/21/25 @ 10:55 by Julian Moss MD) Smoking Status: Current every day smoker Tobacco Type: E-cigarettes / Vaping Age Started Using Tobacco: 13; Age Quit Using Tobacco: 47; packs per day: 2; Smoking End Date: After quitting cigarettes she vapes; Second Hand Exposure: No; Do You Dip or Chew Tobacco: No; Tobacco Cessation Education Requested by Patient: No Hx Alcohol Use: No Hx Substance Use: Yes Last Used Substance: Unknown Last Used Substance Other:: advised Preferred Language: Latvian Communication Ability: Effective Visual Impairment: No Limitations Chlorine Cells Operator Required: No Beliefs That Will Affect Care: None marital status: Current Living Situation: Family Current Living Situation Comment: lives with boyfriend and his son current occupational status: disabled Other Information That Helps Us Care for You: No Feels Safe at Home: Yes Safety Concerns: Feels Safe At This Time Diet: regular during the past year weight has: decreased > 10 lbs Assistive Devices: Cane Review of Systems Review of Systems: All systems reviewed & are unremarkable except as noted in Subjective Physical Exam Physical Exam: General: No acute distress Skin: Warm and dry; Tattoos present Head: Normocephalic, atraumatic Eyes: PERRL, conjunctivae clear, sclera non-icteric R side, L slightly injected on medial corner; bilateral contacts in place ENT: External ear and ear canal without swelling; nose atraumatic; good denti tion, tongue normal appearance, pharynx normal, no dentures inserted (dentures at baseline) Neck: Supple, no LAD; no neck stiffness or pain Cardio: RRR, no M/G/R, S1 and S2 normal Resp: No respiratory distress, Lungs CTA in all lobes bilaterally, no wheezes, rales, or rhonchi Abdomen: Soft, symmetric, nontender; No masses or hepatosplenomegaly; Bowel sounds normoactive MSK: No deformities; pulses palpable and equal; no edema. Neuro: II- PERRL, no VF deficits on exam III, IV, - EOMs intact, no deviation, no nystagmus V- Normal sensation in all locations VII- No asymmetry, no nasolabial fold flattening VIII- Normal hearing to speech IX, X- Normal palatal elevation, no ulnar deviation XI- 5/5 head turn + shoulder shrug bilaterally XII- Midline tongue protrusion Motor: 5/5 strength throughout BUE/BLE; no pronator drift Reflexes: WNL throughout Sensory: Normal sensation throughout, no hemineglect, Romberg absent Coordination: Normal [id number], no tremor Gait: No complaints Psych: Appropriate mood and affect; good judgement and insight; Where "Mena Gilmore", year "2024", others present in room "laureen Bergeron and his son Umang" Rubio Morales, and francisco's son, Umang, present in room at time of visit. Results & Data Results & Data Vital Signs (Past 12 Hours) Vital Signs Temp Pulse Pulse Resp BP BP Pulse Ox 02/20/25 19:23 36.6 C 85 20 119/82 96 02/20/25 19:08 36.6 C 84 18 115/81 96 02/20/25 18:53 36.4 C L 84 22 105/83 98 02/20/25 18:39 36.6 C 86 22 115/88 98 02/20/25 18:23 101 H 16 129/86 96 02/20/25 18:20 83 02/20/25 18:05 86 28 H 118/94 97 02/20/25 17:29 36.7 C 81 22 124/96 97 O2 Del Method 02/20/25 19:23 Room Air 02/20/25 19:08 Room Air 02/20/25 18:53 Room Air 02/20/25 18:39 Room Air 02/20/25 18:23 Room Air 02/20/25 18:20 02/20/25 18:05 Room Air 02/20/25 17:29 Room Air Laboratory Results 02/20/25 02/20/25 18:09 17:52 WBC 8.10 RBC 4.29 Hgb 12.8 Hct 39.5 MCV 92.1 MCH 29.8 MCHC 32.4 RDW Std Deviation 46.0 RDW Coeff of Ruby 13.5 Plt Count 233 MPV 11.2 Immature Gran % (Auto) 0.5 Neut % (Auto) 76.8 Lymph % (Auto) 13.7 [place] % (Auto) 7.7 Eos % (Auto) 0.9 Baso % (Auto) 0.4 Neut # (Auto) 6.23 Lymph # (Auto) 1.11 L [place] # (Auto) 0.62 H Eos # (Auto) 0.07 Baso # (Auto) 0.03 Immature Gran # (Auto) 0.04 PT 10.1 INR 1.0 APTT 24 PTT Ratio 0.9 Sodium 135 L Potassium 4.3 Chloride 105 Carbon Dioxide 27 Anion Gap 3 BUN 14 Creatinine 0.90 Est Cr Clr Drug Dosing 80.0 eGFR 78.86 BUN/Creatinine Ratio 15.6 Glucose 109 H Calcium 8.7 Magnesium 1.9 Total Bilirubin 0.3 AST 11 L ALT 11 Alkaline Phosphatase 77 Troponin I High Sens 3.2 Total Protein 5.9 L Albumin 3.5 Globulin 2.4 L Albumin/Globulin Ratio 1.5 Blood Type A Negative Antibody Screen NEGATIVE Diagnostic Findings Chest X-Ray 02/20/25 17:29 Chest radiograph, one view History: Neuro deficit Comparison: None Findings: Single AP view of the chest performed. No focal consolidation or pleural effusion. No pneumothorax. The cardiomediastinal silhouette is within normal limits. Normal pulmonary vascularity. No evidence for lymphadenopathy. No visualized bony or soft tissue abnormality. Impression: Normal chest radiograph Electronically signed by Jake Price 02-20-2025 7:[address] 02/20/25 17:29 Clinical History: Double vision and facial droop. Technique: Axial computed tomography images were obtained of the brain from the vertex to the skull base without intravenous contrast. Findings: There is no sign of intracranial hemorrhage. There is normal pugh-white matter differentiation with no sign of acute or old infarction. No midline shift or other form of herniation is identified. There is no hydrocephalus. No obvious mass lesion is seen on this noncontrast examination. The visualized portions of the orbits and paranasal sinuses appear unremarkable. The mastoid air cells appear clear Impression: Unremarkable noncontrast CT of the brain These findings were discussed with Dr. Meadows at 5:53 PM on 02/20/2025 Electronically signed by Cuauhtemoc Stovall 02-20-2025 5:54 PM Head CTA 02/20/25 17:29 Clinical History: Double vision and facial droop. Technique: Axial computed tomography images were obtained of the brain after the administration of intravenous contrast according to the CT angiogram protocol Findings: No definite stenosis or aneurysm is seen of the anterior, middle, or posterior cerebral artery circulations. The visualized vertebral arteries and the basilar artery appear unremarkable Impression: No definite stenosis or aneurysm of the intracranial arteries These findings were discussed with Dr. Meadows at 5:53 PM on 02/20/2025 Electronically signed by Cuauhtemoc Stovall 02-20-2025 5:54 PM Neck CTA 02/20/25 17:29 Clinical history: Double vision and facial droop. Technique: Axial computed tomography images were obtained of the neck after the administration of intravenous contrast according to the CT angiogram protocol Findings: No stenosis is seen of the common carotid arteries bilaterally. The carotid bulbs appear normal. The remainder of the internal carotid arteries appear patent bilaterally. No stenosis of the external carotid arteries is seen The vertebral arteries are patent bilaterally with no significant stenosis seen. The visualized thoracic aorta appears unremarkable There is mild emphysema involving the lung apices Impression: Unremarkable CTA of the neck These findings were discussed with Dr. Meadows at 5:53 PM on 02/20/2025 Electronically signed by Cuauhtemoc Stovall 02-20-2025 5:[address] 02/20/25 18:51 Technique: Axial computed tomography images were obtained of the brain from the vertex to the skull base without intravenous contrast. Findings: There is no definite sign of intracranial hemorrhage. There is apparent contrast within the cerebral arteries and dural sinuses. There is normal pugh-white matter differentiation with no sign of acute or old infarction. No midline shift or other form of herniation is identified. There is no hydrocephalus. No obvious mass lesion is seen on this noncontrast examination. The visualized portions of the orbits and paranasal sinuses appear unremarkable. The mastoid air cells appear clear Impression: Unremarkable CT of the brain Electronically signed by Cuauhtemoc Stovall 02-20-2025 7:25 PM Medications Administered Tenecteplase IV ECG Additional Comments: Sinus rhythm with first-degree AV block 82 bpm, MA 214, QRS 88, QT/QTc 3 6/450, PRT 18/32/36 Code Status & VTE Plan Code Status Conditional Code status further clarified in ICU; No mechanical ventilation or intubation. Adjusted from "full code" to "conditional code". Supervising Physician Co-Signing Physician Notes Attending addendum: I have physically seen this patient, have supervised the BECCA's activities, and agree with the H&P unless as otherwise noted. Assessment and Plan: The patient is a 49-year-old female with past medical history including bipolar 1 disorder, IBS, GERD, MR, and thoracic myofascial strain. She complains of diplopia, dysarthria, started around 2:00 this afternoon. She was noted by family to have an intermittent facial droop. In the ED workup included CT scan of brain that was negative, CTA head and neck were negative. Telestroke neurology consult advised administration of TNKase, which the patient received. She will be admitted to the ICU with post TNK protocol order set. Strokelike symptoms/status post TNKase in the emergency department- Admit to the ICU with post thrombolytic order set. EKG with first-degree AV block 82 bpm. Order follow-up echocardiogram CT of brain, and CTA head and neck, are all negative Patient reports having started gabapentin about 1 week ago. Will hold for now as a potential contributor to symptoms. Aspirin will be held post TNKase per protocol until 24 hours after MRI brain ordered and pending Consult PT/OT/speech/neurology GERD- Continue famotidine and omeprazole/pantoprazole Psychiatry- Continue Vraylar and mirtazapine Hold prazosin CAD/mitral valve repair- Temporarily holding aspirin as noted above Atorvastatin 40 mg daily PG Care Time/CCT Total # of Minutes Spent Total Time Spent with Patient: Total time spent is greater than 50% in coordination of care (as documented) at patient's floor/unit and/or counseling patient: Coding Level of Care Code 95279 INT INP/OBS CARE 3/75MIN Diagnoses Stroke-like symptoms R29.90
--- NOTE | 2025-02-20 21:13 | Critical Care Consultation ---
Date of Consultation February 20, 2025 Assessment & Plan (1) Stroke-like symptoms: (2) Encounter for monitoring thrombolytic therapy: Plan Reason Critically Ill: 49 YOF presents with stroke like symptoms- NIHSS on arrival 1, deemed thrombolytic candidate by [facility] [place] telestroke- now admitted to ICU s/p thrombolytic stroke protocol- NIHSS 1 Neuro - stroke like symptoms, s/p administration of thrombolytic administration. HX: Bipolar I, chronic right hip and back pain CAM ICU: NEGATIVE - Stroke like symptoms- current NIHSS 1 for right sided facial droop - S/p TNK administration at 1823 - no further antiplatelet medications for 24 hour - Neuro checks q2 h with NIHSS q2 h - Allow permissive HTN- Labetalol PRN for SBP > 185 and/or DBP >110 - Atorvastatin 40mg - Lipids in am- adjust Atorvastatin per guidelines - HGBA1c in AM - Vaping/smoking cessation - Stroke education per nursing staff - STOPBANG- 3- consider OHS screening on discharge for further risk modification - ECHO with bubble study - CT non-con head 24 hour post TNK or for any acute changes - Antiplatelet medications s/p 24 hour- defer to neurology or hospitalist service Cardiac - No acute needs, Hx: HTN, HLD - As above - Telemetry x24 hours evaluate for any dysrythmia- consider extended mobile monitoring on discharge if applicable Respiratory - No acute needs: Hx: Vape use - smoking cessation education - MADINA screening recommended GI - No acute needs - Advance diet as able - swallow screen passed RENAL/LYTES - No acute needs - follow daily BMP - ICU electrolyte protocol - No acute needs- hx of urine incontinence ENDO - No acute needs - ICU hyperglycemia protocol HEME - No acute needs ID - No concern for cause of infectious etiology LINES/IV ACCESS - PIV, Continue use of these lines DVT PROPHYLAXIS - SCDS, chemoprophylaxis contraindicated in setting of thrombolytic administration DISPO: ICU 24 hour post TNK administration I have personally spent 35 minutes of critical care time in the direct management of this patient. This is a life/limb threatening event. This includes time spent evaluating patient, direct bedside care, chart review, placing orders, interpretation of diagnostic studies, discussion with consultants, patient, and family members, as well as other required patient management activities. This time is exclusive of all separately billable procedures, separate from and in addition to any other care service time. Thank you for allowing us to participate in the care of this patient. Please refer to my attending physician's documentation for any further recommendations. Supervising Physician Co-Signing Physician Notes I have seen and evaluated the patient with the SALES REPRESENTATIVE EDUCATION COURSES. I agree with the documented findings and plan in addition to the following. Patient is a 49-year-old female who presented to the emergency department 02/20/2025 with left-sided blurred vision and dysarthria. 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 The patient on arrival to the emergency department was noted to have right sided facial droop as well as some word finding difficulty. Stroke alert was called. The patient underwent imaging with CT which did not show any evidence of acute abnormalities. Telemedicine neurology was consulted. The decision was made to administer thrombolytics with TNK which was done at 1823 on 02/20/2025. The patient underwent MRI which showed a left thalamic infarct. After TNK the patient's symptoms improved significantly. She was admitted to the ICU for monitoring 24 hours post TNK. On examination today the patient was sleeping, she awakes quickly to voice. Her speech is fluent. Facial strength is equal bilaterally. CN II through XII are grossly intact. Good strength bilaterally. No deficits in sensation. Plan: Continue to monitor in the ICU. Status post TNK 1823 on 02/20/2025. No antiplatelets for 24 hours. Continue neurochecks every 2 hours. Patient has passed her swallow evaluation. Can initiate p.o. diet. Continue statin. A1c is pending. Echo with bubble studies pending. Obtain a stat CT head without contrast if there is change in neurostatus. Will need CT head 24 hours post TNK, will need to be done this evening at 1823. If there is no evidence of hemorrhagic conversion then patient can be transferred out of the ICU after the CT head. I have personally spent 55 minutes of critical care time in the direct management of this patient. This is a life/limb threatening event. This includes time spent evaluating patient, direct bedside care, chart review, placing orders, interpretation of diagnostic studies, discussion with consultants, patient, and/or family members regarding treatment decisions, as well as other required patient management activities. This time is exclusive of all separately billable procedures, and teaching time and separate from and in addition to any other critical care service time. History of Present Illness Reason for Consultation: stroke like symptoms s/p Thrombolytics Requesting Physician: Stevie Durham MD Attending Physician: Stevie Durham MD History of Present Illness 49 YOF with medical history of: HTN, Stress incontinence, HLD, Mitral Valve Prolapse s/p tissue valve repair (2002), Congenital Hip abnormality s/p hip replacement May 03, chronic pain, current vape use. Patient reports that she has been feeling well, only new medication is Gabapentin. Today she reports that around 1400, she was on her phone and noted her vision getting blurry in both eyes, but then progressed to getting more blurry on her LEFT side, and her fiance noted that she was having right sided facial droop as well as some word finding difficulty, She reports no difficulty with strength or sensation changes in any of her extremities, but did note that she felt off balance and dizzy when getting up. She arrived to the ER with reported NIHSS of 1 and reported LKW of 1500, normotensive, and non tachycardic. She was stroke alerted on arrival, obtained head CT, CTA of the head and neck obtained, there was no stenosis, LVO, aneurysm, or hemorrhage interpreted. She was seen by [facility] [place] telestroke, and was deemed a thrombolytic candidate. Patient received Thrombolytics (TNK) at 1823. There was concern of some worsening of facial droop, and word searching post thrombolytics and had a repeat head CT scan performed at 1851, that was negative for any hemorrhage. Patient was admitted by the hospitalist service, ICU was consulted. MRI is pending. Patient was seen in B1 in the ER while awaiting admission, she has just completed her MRI questionnaire, and feels her vision is back to baseline and NIHSS of 1 for right sided facial droop. CODE: DNI for cardiac/and respiratory arrest- DO PERFORM CPR, SHOCK, MEDICATIONS for Cardiac arrest Allergies Allergy/AdvReac Type Severity Reaction Status Date / Time ciprofloxacin Allergy Intermediate hot, rash Verified 02/20/25 18:46 erythromycin base Allergy Intermediate b/p Verified 02/20/25 18:46 elevates, rash Macrolide Antibiotics Allergy Mild Unknown Verified 02/20/25 18:46 Penicillins Allergy Mild Unknown Verified 02/20/25 18:46 Sulfa (Sulfonamide Allergy Mild Unknown Verified 02/20/25 18:46 Antibiotics) vancomycin AdvReac Severe red, hot, Verified 02/20/25 18:46 rash cephalexin AdvReac Intermediate rash Verified 02/20/25 18:46 steroid AdvReac Mild agitation Uncoded 02/20/25 18:46 and "flips out" Home Medications Medication Instructions Recorded Confirmed Type omeprazole 20 mg capsule,delayed 20 mg PO BID 11/13/19 02/20/25 History release prazosin 1 mg capsule 1 mg PO HS 02/03/23 02/20/25 History aspirin 81 mg tablet,delayed 81 mg PO QAM 02/20/25 02/20/25 History release cariprazine 3 mg capsule (Vraylar) 3 mg PO HS 02/20/25 02/20/25 History famotidine 40 mg tablet 40 mg PO HS 02/20/25 02/20/25 History ferrous sulfate 325 mg (65 mg 325 mg PO QAM 02/20/25 02/20/25 History iron) tablet gabapentin 300 mg capsule 300 mg PO TID PRN Pain 02/20/25 02/20/25 History mirtazapine 30 mg tablet 30 mg PO HS 02/20/25 02/20/25 History Patient History Medical History Mitral regurgitation moderate, referred to valve clinic for potential replacement Diverticulosis History of colon polyps PONV (postoperative nausea and vomiting) GERD (gastroesophageal reflux disease) Irritable bowel syndrome without diarrhea Bipolar I disorder, single manic episode History of NV (myocardial infarction) 2020 medical management with cardio ([place] [facility]) Anxiety and depression Surgical History History of colonoscopy Hx of laparoscopy multiple Hx laparoscopic cholecystectomy History of oral surgery all teeth removed History of tonsillectomy Hx of hysterectomy History of placement of ear tubes X 2 Social History Smoking Status: Current every day smoker Tobacco Type: E-cigarettes / Vaping Cigarettes Per Day: 1ppd; Second Hand Exposure: No; Do You Dip or Chew Tobacco: No; Tobacco Cessation Education Requested by Patient: No Hx Alcohol Use: No Hx Substance Use: Yes Last Used Substance: Unknown Last Used Substance Other:: advised Preferred Language: Kazakh Communication Ability: Effective Visual Impairment: No Limitations Plaster Maker Required: No Beliefs That Will Affect Care: None marital status: Current Living Situation: Family Current Living Situation Comment: lives with boyfriend and his son current occupational status: disabled Other Information That Helps Us Care for You: No Feels Safe at Home: Yes Safety Concerns: Feels Safe At This Time Diet: regular during the past year weight has: decreased > 10 lbs Assistive Devices: Glasses Review of Systems Review of Systems: REVIEW OF SYSTEMS: Constitutional: No fever, sweats or chills Eyes:(+) diplopia, worsening or blurred vision ENT: normal hearing, no trouble swallowing Respiratory: No cough, sputum, dyspnea at rest or on exertion Cardiovascular: No chest pain, tightness or palpitations Abdomen: No pain, nausea, vomiting, diarrhea or constipation Musculoskeletal: No joint pain, calf pain, swelling Neurologic: (+) speech change, facial droop, dizziness and off balance, No weakness, numbness/tingling, Physical Exam Physical Exam: PHYSICAL EXAM: General: awake, alert, no apparent distress Head: Normocephalic, atraumatic ENT: PERRL, EOMI, no pharyngeal exudate, mucous membranes moist Neuro: AAO x 3, speech clear and appropriate, strength intact bilaterally 5/5, sensation intact and equal all extremities and dermatomes, no pronator drift, no visual field cuts or double vision, Right Facial droop, no ataxia, patient feels her vision is back to baseline. NIHSS 1 Chest: equal rise and fall of the chest, no accessory muscle use, no heaves or thrills, Clear to auscultation, on room air, Cardiac: Regular rate and rhythm, telemetry reviewed- NSR, skin warm dry, cap refill <3 seconds, peripheral pulses +2 no JVD, no murmur, no edema GI: NABS x 4 quadrants, soft, nontender to palpation, no rebound, guarding or tenderness : Spontaneously voiding, no pain, no CVA tenderness, Extremities: Normal inspection, no peripheral edema or erythema, calfs nontender to palpation Psych: Normal mood and affect Results & Data Results & Data Vital Signs (Past 12 Hours) Vital Signs Temp Pulse Pulse Resp BP BP Pulse Ox 02/20/25 20:25 36.5 C 72 17 123/95 98 02/20/25 20:10 36.7 C 85 16 118/80 97 02/20/25 20:00 84 16 116/83 98 02/20/25 19:55 36.4 C L 75 17 116/86 97 02/20/25 19:40 36.8 C 88 17 124/88 97 02/20/25 19:25 36.5 C 87 17 120/87 97 02/20/25 19:23 36.6 C 85 20 119/82 96 02/20/25 19:08 36.6 C 84 18 115/81 96 02/20/25 18:53 36.4 C L 84 22 105/83 98 02/20/25 18:39 36.6 C 86 22 115/88 98 02/20/25 18:23 101 H 16 129/86 96 02/20/25 18:20 83 02/20/25 18:05 86 28 H 118/94 97 02/20/25 17:29 36.7 C 81 22 124/96 97 O2 Del Method 02/20/25 20:25 Room Air 02/20/25 20:10 Room Air 02/20/25 20:00 Room Air 02/20/25 19:55 Room Air 02/20/25 19:40 Room Air 02/20/25 19:25 Room Air 02/20/25 19:23 Room Air 02/20/25 19:08 Room Air 02/20/25 18:53 Room Air 02/20/25 18:39 Room Air 02/20/25 18:23 Room Air 02/20/25 18:20 02/20/25 18:05 Room Air 02/20/25 17:29 Room Air Laboratory Results Abnormal lab results 02/20/25 Range/Units 17:52 Lymph # (Auto) 1.11 L (1.20-3.40) K/uL [place] # (Auto) 0.62 H (0.11-0.59) K/uL Sodium 135 L (136-145) mmol/L Glucose 109 H (70-99(Fasting)) mg/dl AST 11 L (13-39) U/L Total Protein 5.9 L (6.0-8.3) gm/dl Globulin 2.4 L (2.5-4.0) gm/dl Diagnostic Findings Chest X-Ray 02/20/25 17:29 Chest radiograph, one view History: Neuro deficit Comparison: None Findings: Single AP view of the chest performed. No focal consolidation or pleural effusion. No pneumothorax. The cardiomediastinal silhouette is within normal limits. Normal pulmonary vascularity. No evidence for lymphadenopathy. No visualized bony or soft tissue abnormality. Impression: Normal chest radiograph Electronically signed by Jake Price 02-20-2025 7:[address] 02/20/25 17:29 Clinical History: Double vision and facial droop. Technique: Axial computed tomography images were obtained of the brain from the vertex to the skull base without intravenous contrast. Findings: There is no sign of intracranial hemorrhage. There is normal pugh-white matter differentiation with no sign of acute or old infarction. No midline shift or other form of herniation is identified. There is no hydrocephalus. No obvious mass lesion is seen on this noncontrast examination. The visualized portions of the orbits and paranasal sinuses appear unremarkable. The mastoid air cells appear clear Impression: Unremarkable noncontrast CT of the brain These findings were discussed with Dr. Meadows at 5:53 PM on 02/20/2025 Electronically signed by Cuauhtemoc Stovall 02-20-2025 5:54 PM Head CTA 02/20/25 17:29 Clinical History: Double vision and facial droop. Technique: Axial computed tomography images were obtained of the brain after the administration of intravenous contrast according to the CT angiogram protocol Findings: No definite stenosis or aneurysm is seen of the anterior, middle, or posterior cerebral artery circulations. The visualized vertebral arteries and the basilar artery appear unremarkable Impression: No definite stenosis or aneurysm of the intracranial arteries These findings were discussed with Dr. Meadows at 5:53 PM on 02/20/2025 Electronically signed by Cuauhtemoc Stovall 02-20-2025 5:54 PM Neck CTA 02/20/25 17:29 Clinical history: Double vision and facial droop. Technique: Axial computed tomography images were obtained of the neck after the administration of intravenous contrast according to the CT angiogram protocol Findings: No stenosis is seen of the common carotid arteries bilaterally. The carotid bulbs appear normal. The remainder of the internal carotid arteries appear patent bilaterally. No stenosis of the external carotid arteries is seen The vertebral arteries are patent bilaterally with no significant stenosis seen. The visualized thoracic aorta appears unremarkable There is mild emphysema involving the lung apices Impression: Unremarkable CTA of the neck These findings were discussed with Dr. Meadows at 5:53 PM on 02/20/2025 Electronically signed by Cuauhtemoc Stovall 02-20-2025 5:[address] 02/20/25 18:51 Technique: Axial computed tomography images were obtained of the brain from the vertex to the skull base without intravenous contrast. Findings: There is no definite sign of intracranial hemorrhage. There is apparent contrast within the cerebral arteries and dural sinuses. There is normal pugh-white matter differentiation with no sign of acute or old infarction. No midline shift or other form of herniation is identified. There is no hydrocephalus. No obvious mass lesion is seen on this noncontrast examination. The visualized portions of the orbits and paranasal sinuses appear unremarkable. The mastoid air cells appear clear Impression: Unremarkable CT of the brain Electronically signed by Cuauhtemoc Stovall 02-20-2025 7:25 PM Medications Administered Home Medications omeprazole 20 mg capsule,delayed release 20 mg PO BID 11/13/19 [History Confirmed 02/20/25] prazosin 1 mg capsule 1 mg PO HS 02/03/23 [History Confirmed 02/20/25] aspirin 81 mg tablet,delayed release 81 mg PO QAM 02/20/25 [History Confirmed 02/20/25] cariprazine 3 mg capsule (Vraylar) 3 mg PO HS 02/20/25 [History Confirmed 02/20/25] famotidine 40 mg tablet 40 mg PO HS 02/20/25 [History Confirmed 02/20/25] ferrous sulfate 325 mg (65 mg iron) tablet 325 mg PO QAM 02/20/25 [History Confirmed 02/20/25] gabapentin 300 mg capsule 300 mg PO TID PRN Pain 02/20/25 [History Confirmed 02/20/25] mirtazapine 30 mg tablet 30 mg PO HS 02/20/25 [History Confirmed 02/20/25] Active Medications Aspirin (No Aspirin Within 24hrs Of Thrombolytic-Stroke) 1 each PO UD DELORES Stop: 02/21/25 18:14 Atorvastatin Calcium (Atorvastatin 40 Mg Tab) 40 mg PO QAM DELORES Stop: 03/23/25 08:59 Cariprazine (Cariprazine Hcl 3 Mg Cap) 3 mg PO HS DELORES Stop: 03/22/25 21:15 Famotidine (Famotidine 20 Mg Tab) 40 mg PO HS DELORES Stop: 03/23/25 20:59 Ferrous Sulfate (Ferrous Sulfate 325 Mg Tab) 325 mg PO QAM DELORES Stop: 03/23/25 08:59 Mirtazapine (Mirtazapine Tab 15 Mg Tab) 30 mg PO HS DELORES Stop: 03/22/25 21:15 Miscellaneous (Icu Protocol For Hyperglycemia) 1 each N/A ACHS DELORES Stop: 02/22/25 21:15 Pantoprazole Sodium (Pantoprazole 40 Mg Tab) 40 mg PO BID DELORES Stop: 03/23/25 08:59 ECG Additional Comments: Sinus rhythmwith 1st degree A-V block Otherwise normal ECG When compared with ECG [id number] 00:58, No significant change was found Coding Level of Care Code 90436 CRITICAL CARE 1ST 30-74M Diagnoses Stroke-like symptoms R29.90 Encounter for monitoring thrombolytic therapy Z51.81; Z79.02
[2025-02-20] MEDS ORDERED: PHARMACIST DISCHARGE MED REC CONSULT PRN (21:16)
[2025-02-20] MEDS ORDERED: LABETALOL HCL IV 5 MG/ML 20ML IV PRN (21:29)
[2025-02-20] MEDS: CARIPRAZINE HCL 3 MG CAP PO SCH (23:20)
[2025-02-20] MEDS: MIRTAZAPINE TAB 15 MG TAB PO SCH (23:21)
--- NOTE | 2025-02-20 23:45 | Magnetic Resonance Report ---
Exam(s): MRI HEAD Without Contrast EXAM: MR Head Without Intravenous Contrast CLINICAL HISTORY: Reason for exam: CVA. TECHNIQUE: Magnetic resonance images of the head/brain without intravenous contrast in multiple planes. COMPARISON: Prior head CT from February 20, 2025. FINDINGS: Brain: There is an acute ischemic injury of the left thalamus without evidence of hemorrhagic transformation. Minimal nonspecific white matter changes. No mass. No hemorrhage. The flow voids at the base the brain are intact. Ventricles: Unremarkable. No ventriculomegaly. Bones/joints: Unremarkable. No acute fracture. Sinuses: Unremarkable as visualized. No acute sinusitis. Mastoid air cells: Unremarkable as visualized. No mastoid effusion. Orbits: Unremarkable as visualized. IMPRESSION: There is an acute ischemic injury of the left thalamus without evidence of hemorrhagic transformation. Communications: Verify Receipt Electronically signed by: Elza Greenfield MD 02/20/25 23:44 PM
[2025-02-21 04:37] LABS: Hematocrit (blood only) 41.2 % (37.0-47.0); Hemoglobin 14.0 g/dl (12.0-16.0); Immature Granulocytes # (auto) 0.03 K/uL (0.01-0.20); Immature Granulocytes % (auto) 0.3 %; Mean Corpuscular Hemoglobin 30.9 pg (25.0-34.0); Mean Corpuscular Volume 90.9 fL (80.0-100.0); Platelet Count 272 K/uL (130-400); RDW Standard Deviation 46.0 fL (36.4-46.3); Red Blood Count 4.53 M/uL (4.20-5.40); White Blood Count 10.65 K/ul (4.8-10.8)
[2025-02-21 04:54] LABS: Anion Gap 6.0 (3-11); Blood Urea Nitrogen 12.0 mg/dl (6-23); Calcium 9.3 mg/dl (8.6-10.3); Carbon Dioxide 23.0 mmol/L (21-32); Chloride 109.0 mmol/L (98-107); Cholesterol 185.0 mg/dl (0-200); Creatinine Clr Calc Pharmacy 86.8 ml/min; Glucose 99.0 mg/dl (70-99(Fasting)); HDL Cholesterol 35.0 mg/dl; Potassium 4.1 mmol/L (3.5-5.1); Sodium 138.0 mmol/L (136-145); Triglycerides 251.0 mg/dl (0-150)
[2025-02-21] MEDS: SODIUM CHLORIDE 0.9% 10ML FLUSH IV STA (05:13)
[2025-02-21] MEDS: STAT IV/IM STA (05:13)
--- NOTE | 2025-02-21 07:28 | Hospitalist Progress Note ---
Date of Service February 21, 2025 Assessment & Plan (1) Stroke-like symptoms: Plan 49-year-old female PMHx bipolar 1 disorder, IBS, GERD, MR, and thoracic myofascial strain presenting for complaints of diplopia and dysarthria starting at 1400-day of arrival. Her evaluation is significant for mildly decreased sodium at 135, but otherwise unremarkable workup. EKG does reveal first-degree AV block at 82 bpm. Patient without neuro-deficits at time of admission. #Stroke-MRI suggests acute L thalamic CVA s/p TNKase. Patient received TNKase in ED. History of migraines many years ago, never without focal deficits. 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 NIH 0 at time of admission. Still having some blurred vision L eye, no abnormalities on physical exam. - CT head WNL; repeat post TNK also WNL - CTA head/neck unremarkable - EKG first-degree AV block 82 bpm - Echo normal EF with no significant shunt - A1c 11/2024 @ 5.4% - Lipids 11/2024 total 187, LDL 114.2, HDL 33, TG 199 -- Atorvastatin 40 mg po d aily - Allow for permissive hypertension - Hold prazosin night of admission - Hold gabapentin; ? contributing factor - ASA restart 24 hours post-TNKase - MRI confirms thalamic cva - PT/OT ordered - appreciate assistance #GERD- Famotidine, omeprazole - continue #Psych- Vraylar, mirtazapine, ? prazosin - hold prazosin night of admission, continue other medications #Pain- Gabapentin recently started ~ 1 week ago for R hip pain- Hold at time of admission #CAD/MVR- S/p MV repair (Triangular resection + chordal tx with annuloplasty [address] Alford), follows with cardiology (most recent visit 10/27/2024); On ASA daily, also documented to be taking atorvastatin 40 mg? - Continue atorvastatin 40mg daily, restart ASA 24 hours post-TNKase VTE Prophylaxis: SCDs for now Admission and Anticipated Discharge Date Admission Date: February 20, 2025 Subjective pt is feeling improved, mild facial weakness has resolved confirmed thalamic stroke seen on MRI now will be day 2 post thrombolytic treatment Physical Exam Physical Exam: awake and alert, no focal deficits no bruising cardiac is regular lungs are clear Results & Data Results & Data Vital Signs (Past 12 Hours) Vital Signs Temp Pulse Pulse Resp BP BP BP 02/21/25 06:25 84 16 111/78 02/21/25 05:25 98.4 F 79 13 111/78 02/21/25 04:25 79 21 121/79 02/21/25 03:25 82 17 119/78 02/21/25 02:25 82 21 112/89 02/21/25 01:55 82 14 123/87 02/21/25 01:25 89 22 114/95 02/21/25 01:09 02/21/25 00:55 75 17 144/87 H 02/21/25 00:25 103 H 21 110/72 02/20/25 23:55 75 13 109/79 02/20/25 23:33 80 02/20/25 23:25 96 H 23 103/79 02/20/25 22:55 92 H 19 114/85 02/20/25 22:25 80 17 111/86 02/20/25 21:25 81 14 120/97 02/20/25 21:17 80 02/20/25 20:55 70 17 123/90 02/20/25 20:25 97.7 F 72 17 123/95 02/20/25 20:10 98.1 F 85 16 118/80 02/20/25 20:00 84 16 116/83 02/20/25 19:55 97.5 F L 75 17 116/86 02/20/25 19:40 98.2 F 88 17 124/88 02/20/25 19:25 97.7 F 87 17 120/87 Pulse Ox O2 Del Method O2 Del Method 02/21/25 06:25 95 Room Air 02/21/25 05:25 94 Room Air 02/21/25 04:25 95 Room Air 02/21/25 03:25 95 Room Air 02/21/25 02:25 94 Room Air 02/21/25 01:55 95 Room Air 02/21/25 01:25 98 Room Air 02/21/25 01:09 Room Air 02/21/25 00:55 94 Room Air 02/21/25 00:25 99 Room Air 02/20/25 23:55 96 Room Air 02/20/25 23:33 02/20/25 23:25 92 Room Air 02/20/25 22:55 100 Room Air 02/20/25 22:25 98 Room Air 02/20/25 21:25 94 Room Air 02/20/25 21:17 02/20/25 20:55 99 Room Air 02/20/25 20:25 98 Room Air 02/20/25 20:10 97 Room Air 02/20/25 20:00 98 Room Air 02/20/25 19:55 97 Room Air 02/20/25 19:40 97 Room Air 02/20/25 19:25 97 Room Air Laboratory Results review cbc review chemistry PG Care Time/CCT Total # of Minutes Spent Total Time Spent with Patient: Total time spent is greater than 50% in coordination of care (as documented) at patient's floor/unit and/or counseling patient: Coding Level of Care Code 98459 SUB INP/OBS CARE 3/50MIN Diagnoses Stroke-like symptoms R29.90
[2025-02-21] MEDS: ATORVASTATIN 40 MG TAB PO SCH (08:46)
[2025-02-21] MEDS: FERROUS SULFATE 325 MG TAB PO SCH (08:46)
[2025-02-21] MEDS ORDERED: PNEUMOCOCCAL VACCINE (PCV20) 20-VAL CONJ-DIP CRM/PF 0.5 ML SYR IM ONE (09:00)
[2025-02-21 09:01] LABS: Hemoglobin A1C 5.7 % (4.5-5.6)
--- NOTE | 2025-02-21 11:01 | Neurology Consultation ---
Date of Consultation February 21, 2025 Assessment & Plan (1) Cerebrovascular accident (CVA) of left thalamus: (2) Hypertension: Plan Patient had an acute left thalamic stroke the afternoon of February 20. She received TNK which did not immediately help her symptoms but she cleared all of her symptoms by the end of the day. Today she is essentially asymptomatic. Neurologic examination is nonfocal without meningeal signs or encephalopathy. The symptoms of her stroke were not usual for the left thalamic area. Nevertheless what ever symptoms she had are resolved. There is no evidence on MRI for other strokes Hypertension, dyslipidemia, and history of cigarette smoking are her risk factors for stroke CT angiography of the head and neck was unremarkable. Recommendations: 1. Check CT scan of the head 24 hours after TNK 2. After 24 hours, I would initiate dual antiplatelet therapy with 75 mg clopidogrel and 81 mg aspirin. Continue dual antiplatelet therapy for 3 weeks then discontinue the aspirin and remain on clopidogrel alone. 3. The patient is theoretically a high-dose statin candidate 4. Control blood pressure as you are doing 5. Increase activity as able including physical, occupational and speech therapy consults. 6. Awaiting echocardiogram History of Present Illness Reason for Consultation: Patient is a 49-year-old, who was asked to see at the request of Dr. Landrum, for neurologic evaluation regarding stroke Requesting Physician: Dr. Landrum Attending Physician: Nirmal Landrum MD History of Present Illness This patient has a had a history of hypertension and a valve repair 2 years ago for which she has been on 81 mg aspirin tablet daily. She has a history of TX in 2019. Patient also carries a diagnosis of bipolar 1 currently on mirtazapine (and stable). 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 The patient was at home doing her usual activities the morning of February 20. She was watching TV when around 1400 she had the sudden onset of double vision straight ahead with possible blurry vision, right facial droop, but no other weakness or numbness. When she covers 1 eye or the other the double vision disappeared. By 1600 she noted some slurred speech. There was no gait issue, mentation problem, or pain/weakness/numbness in the arms or legs. She arrived at the emergency room at 1729 with a temperature of 36.7, pulse 81 and regular, respiratory rate 22, blood pressure 124/96, and O2 saturation 97%. NIH stroke scale was 1 because of a right facial droop. She did not have any obvious disconjugate gaze or other focal findings on examination. Slurred speech was not noted. This morning CBC and CHEM profile were unremarkable. Hemoglobin A1c was 5.7. Triglycerides were 251 and total cholesterol 185. CBC and CMP were unremarkable/normal Chest x-ray was unremarkable CT scanning of the head showed no acute changes CT angiography of the head and neck were unremarkable without vascular stenoses or anomalies. After consultation with [facility] she was given TNK The patient states that TNK did not help any of her symptoms but she gradually improved over the course of the next several hours. MRI of the brain showed a small acute left thalamic stroke. There were no other abnormalities seen on MRI. I reviewed these films. This morning, she feels back to baseline without weakness, numbness, vision problems, or speech issues. Allergies Allergy/AdvReac Type Severity Reaction Status Date / Time ciprofloxacin Allergy Intermediate hot, rash Verified 02/20/25 18:46 erythromycin base Allergy Intermediate b/p Verified 02/20/25 18:46 elevates, rash Macrolide Antibiotics Allergy Mild Unknown Verified 02/20/25 18:46 Penicillins Allergy Mild Unknown Verified 02/20/25 18:46 Sulfa (Sulfonamide Allergy Mild Unknown Verified 02/20/25 18:46 Antibiotics) vancomycin AdvReac Severe red, hot, Verified 02/20/25 18:46 rash cephalexin AdvReac Intermediate rash Verified 02/20/25 18:46 steroid AdvReac Mild agitation Uncoded 02/20/25 18:46 and "flips out" Home Medications Medication Instructions Recorded Confirmed Type omeprazole 20 mg capsule,delayed 20 mg PO BID 11/13/19 02/20/25 History release prazosin 1 mg capsule 1 mg PO HS 02/03/23 02/20/25 History aspirin 81 mg tablet,delayed 81 mg PO QAM 02/20/25 02/20/25 History release cariprazine 3 mg capsule (Vraylar) 3 mg PO HS 02/20/25 02/20/25 History famotidine 40 mg tablet 40 mg PO HS 02/20/25 02/20/25 History ferrous sulfate 325 mg (65 mg 325 mg PO QAM 02/20/25 02/20/25 History iron) tablet gabapentin 300 mg capsule 300 mg PO TID PRN Pain 02/20/25 02/20/25 History mirtazapine 30 mg tablet 30 mg PO HS 02/20/25 02/20/25 History Patient History Medical History Mitral regurgitation moderate, referred to valve clinic for potential replacement Diverticulosis History of colon polyps PONV (postoperative nausea and vomiting) GERD (gastroesophageal reflux disease) Irritable bowel syndrome without diarrhea Bipolar I disorder, single manic episode History of TX (myocardial infarction) 2020 medical management with cardio ([facility]) Anxiety and depression Surgical History History of colonoscopy Hx of laparoscopy multiple Hx laparoscopic cholecystectomy History of oral surgery all teeth removed History of tonsillectomy Hx of hysterectomy History of placement of ear tubes X 2 Family History (Updated 02/21/25 @ 10:55 by Julian Moss MD) Mother Hypertension Heart disease Father , Patient has no information on father's medical problems or No problems noted. Social History (Updated 02/21/25 @ 10:55 by Julian Moss MD) Smoking Status: Current every day smoker Tobacco Type: E-cigarettes / Vaping Age Started Using Tobacco: 13; Age Quit Using Tobacco: 47; packs per day: 2; Second Hand Exposure: No; Do You Dip or Chew Tobacco: No; Hx Alcohol Use: No Hx Substance Use: Yes Last Used Substance: Unknown Last Used Substance Other:: advised Preferred Language: Turkish Communication Ability: Effective Visual Impairment: No Limitations Clinical Scientist Required: No Beliefs That Will Affect Care: None marital status: Current Living Situation: Family Current Living Situation Comment: lives with boyfriend and his son current occupational status: disabled Feels Safe at Home: Yes Diet: regular during the past year weight has: decreased > 10 lbs Assistive Devices: Cane Review of Systems Constitutional: no fever, no fatigue and no weakness Eyes: no diplopia, no eye pain and no worsening vision Ear, Nose, Mouth, Throat: no ear pain, no tinnitus, no hearing loss, no dizziness, no snoring, no hoarseness and no dysphagia Respiratory: no cough and no dyspnea Cardiovascular: no chest pain, no palpitations and no lightheadedness Gastrointestinal: no abdominal pain, no nausea and no vomiting Genitourinary: no dysuria, no urinary frequency and no urinary incontinence Musculoskeletal: no back pain, no neck pain, no radicular pain, no joint pain and no myalgia Integumentary: no rash and no lesions Neurologic: no gait abnormality, no localized weakness, no generalized weakness, no tingling, no numbness, no tremor(s), no abnormal movements, no headache(s), no abnormal speech, no confusion and no memory loss Psychiatric: no depression, no irritability, no anxiety, no difficulty conc entrating, no confusion and no hallucinations Endocrine: no fatigue and no flushing Hematologic / Lymphatic: no easy bleeding and no easy bruising Allergy / Immunological: no urticaria and no problem reported Exam (Neuro) Physical Exam: The patient is right-handed. The patient is awake, alert, and attentive. Speech is normal without any aphasia or dysarthria. Mentation and thought processes are intact, with full orientat ion and normal fund of knowledge. Mood and affect are normal and appropriate. Appearance and grooming are normal. Short and long-term memory are intact to conversation. Pupils are 4 mm bilaterally and reactive to light. Extraocular eye muscles are intact without nystagmus. Visual acuity and visual buitrago seem normal grossly to confrontation. There are no deficits to sensation in the face in all 3 distributions of the fifth cranial nerve bilaterally. Corneal reflexes are positive bilaterally. Facial strength and symmetry was normal bilaterally. Hearing seems intact grossly to voice and finger rub bilaterally. Palate moves well without asymmetry. There is normal sternocleidomastoid and trapezius strength bilaterally. Tongue is midline with good strength bilaterally. I note no facial droop Neck has a full range of motion without discomfort. There are no cervical bruits bilaterally. There are no cranial or ocular bruits. Heart is without murmur. There is a regular rhythm and rate. Cervical, thoracic, and lumbar spine are nontender to palpation. Gait was not tested. Sitting up in bed is normal. With outstretched arms there is no drift. There are no resting, postural, or action tremors. There is no ataxia with finger to nose testing. There is good facility in the hands. No other abnormal involuntary movements are noted. Motor strength is 5/5 diffusely in the arms bilaterally including deltoids, biceps, triceps, brachioradialis, wrist flexors and extensors, accountant budget, and intrinsic hand muscles. Motor strength is 5/5 diffusely in the legs bilaterally including hip flexors, quadriceps, hamstrings, gastrocnemius, tibialis anterior, tibialis posterior, and Peroneii muscles bilaterally. Toe extensors are normal and there is good bulk in the extensor digitorum brevis muscles bilaterally. The limbs have good tone without rigidity or spasticity. There is no atrophy noted in the muscles. Muscle bulk is normal, there is no tenderness to palpation, no myotonia to percussion, and no fasciculations seen. Sensory examination is intact to touch and pin throughout all 4 limbs diffusely. Reflexes are 2/4 in the biceps, triceps, brachioradialis, quadriceps, and Achilles tendons bilaterally. Toes are downgoing with plantar stimulation bilaterally. Peripheral pulses are present and of normal quality distally in all 4 limbs. There is no peripheral edema noted in the limbs. Results & Data Vital Signs (Past 12 Hours) Vital Signs Temp Pulse Pulse Resp BP BP Pulse Ox 02/21/25 10: 88 16 107/75 96 02/21/25 09:25 115 H 18 107/82 96 02/21/25 08:25 36.9 C 89 16 91/68 L 96 02/21/25 07:25 83 16 103/70 96 02/21/25 06:25 84 16 111/78 95 02/21/25 05:25 36.9 C 79 13 111/78 94 02/21/25 04:25 79 21 121/79 95 02/21/25 03:25 82 17 119/78 95 02/21/25 02:25 82 21 112/89 94 02/21/25 01:55 82 14 123/87 95 02/21/25 01:25 89 22 114/95 98 02/21/25 01:09 02/21/25 00:55 75 17 144/87 H 94 02/21/25 00:25 103 H 21 110/72 99 02/20/25 23:55 75 13 109/79 96 02/20/25 23:33 80 02/20/25 23:25 96 H 23 103/79 92 02/20/25 22:55 92 H 19 114/85 100 O2 Del Method O2 Del Method 02/21/25 10:25 Room Air 02/21/25 09:25 Room Air 02/21/25 08:25 Room Air 02/21/25 07:25 Room Air 02/21/25 06:25 Room Air 02/21/25 05:25 Room Air 02/21/25 04:25 Room Air 02/21/25 03:25 Room Air 02/21/25 02:25 Room Air 02/21/25 01:55 Room Air 02/21/25 01:25 Room Air 02/21/25 01:09 Room Air 02/21/25 00:55 Room Air 02/21/25 00:25 Room Air 02/20/25 23:55 Room Air 02/20/25 23:33 02/20/25 23:25 Room Air 02/20/25 22:55 Room Air PG Care Time/CCT Total # of Minutes Spent Total Time Spent with Patient: Total time spent is greater than 50% in coordination of care (as documented) at patient's floor/unit and/or counseling patient: Coding Level of Care Code 12913 INT INP/OBS CARE 3/75MIN Diagnoses Cerebrovascular accident (CVA) of left thalamus I63.81 Hypertension I10
--- NOTE | 2025-02-21 13:24 | XCELERA ---
[id number]
--- NOTE | 2025-02-21 19:12 | CT Scan Report ---
EXAMINATION: Head CT without CLINICAL HISTORY: 24 hours after TNK for CVA left dominant PRIORS: Head CT 02/20/2025 TECHNIQUE: Contiguous axial images were obtained through the head without the use of intravenous contrast. Sagittal and coronal reformations are supplied. FINDINGS: Appropriate parenchymal volume is noted. Anguiano-white differentiation is preserved. No edema or midline shift. Left thalamus lucency is noted, more conspicuous measuring approximately 1.2 x 0.6 cm. No reperfusion hemorrhage. No large territorial infarction. No intra-axial or extra-axial hemorrhage. Ventricles are normal in size and configuration. Brainstem and cerebellum have a normal appearance. Calvarium unremarkable. Paranasal sinuses and mastoid air cells are well-pneumatized. Globes are intact. No retrobulbar abnormality. IMPRESSION: Small area of lucency in the thalamus, more conspicuous on today's examination with no hemorrhage or surrounding edema. ACT 112: Positive. There are findings on this examination that require communication between the performing entity and the patient following Patient Test Result Information Act ([place] ACT 112) guidelines. Electronically signed by Patti Flores 02-21-2025 7:12 PM
[2025-02-21] MEDS: FAMOTIDINE 20 MG TAB PO SCH (20:28)
[2025-02-21] MEDS: ASPIRIN 81 MG ECTAB PO STA (20:28)
[2025-02-21] MEDS ORDERED: Nursing to Pharmacy Communication SCH (20:45)
[2025-02-21 23:12] VITALS: O2SAT 95
[2025-02-22 04:51] LABS: Hematocrit (blood only) 44.8 % (37.0-47.0); Hemoglobin 15.3 g/dl (12.0-16.0); Immature Granulocytes # (auto) 0.02 K/uL (0.01-0.20); Immature Granulocytes % (auto) 0.2 %; Mean Corpuscular Hemoglobin 31.1 pg (25.0-34.0); Mean Corpuscular Volume 91.1 fL (80.0-100.0); Platelet Count 268 K/uL (130-400); RDW Standard Deviation 45.6 fL (36.4-46.3); Red Blood Count 4.92 M/uL (4.20-5.40); White Blood Count 8.41 K/ul (4.8-10.8)
--- NOTE | 2025-02-22 08:05 | Neurology Progress Note ---
Date of Service February 22, 2025 Assessment & Plan (1) Cerebrovascular accident (CVA) of left thalamus: (2) Hypertension: Plan Patient had an acute left thalamic stroke the afternoon of February 20. She received TNK which did not immediately help her symptoms but she cleared all of her symptoms by the end of that day. Today she is asymptomatic. Neurologic examination is nonfocal without deficits, and no meningeal signs or encephalopathy. The symptoms of her stroke were not usual for the left thalamic area. Nevertheless whatever symptoms she had are resolved. There is no evidence on MRI for other strokes Hypertension, dyslipidemia, and history of cigarette smoking are her risk factors for stroke CT angiography of the head and neck was unremarkable. Echocardiogram was unremarkable. Recommendations: 1. Continue dual antiplatelet therapy with 75 mg clopidogrel and 81 mg aspirin. 2. From a neurologic standpoint, continue dual antiplatelet therapy for 3 weeks then discontinue the aspirin and remain on clopidogrel alone. However, [facility] regarding continued dual antiplatelet therapy versus clopidogrel alone 3. Continue atorvastatin 40 mg daily 4. Control blood pressure as you are doingit is improved but still borderline. Eventually aim for a mean arterial pressure of 95. 5. Increase activity as able including physical, occupational and speech therapy consults. 6. I have no further neurologic testing or treatment recommendations to make at this time. Please contact me if I can be of further assistance. 7. Follow-up with neurology in several weeks post discharge with neurology PA, if desired. (Also follow-up with her tube laser operator). Overall I spent a total of 35 minutes with this case including review of records, review of CT films, direct evaluation of the patient, report generation, and discussion of the case with the patient and RN at bedside and Dr. Wooten including differential diagnosis and treatment options. Admission and Anticipated Discharge Date Admission Date: February 20, 2025 Subjective Patient has no complaint of pain, headache, vision problems (including double blurry), speech or mentation problems, weakness, numbness, or balance problems. Echocardiogram was unremarkable with no valvular issues or shunt. Blood pressure is 131/90 this morning. CBC was unremarkable. Repeat CT scan of the head yesterday showed a left thalamic stroke but no hemorrhage. I reviewed these films. Results & Data Vital Signs (Past 12 Hours) Vital Signs Temp Pulse Pulse Resp BP BP Pulse Ox 02/22/25 04:00 36.5 C 85 15 131/90 95 02/22/25 00:52 88 02/21/25 23:11 36.7 C 91 H 17 119/89 95 02/21/25 22:30 02/21/25 22:03 88 13 98 02/21/25 22:01 114/80 02/21/25 22:01 114/80 02/21/25 22:01 114/80 02/21/25 21:51 79 22 97 02/21/25 20:03 87 20 94 02/21/25 20:00 121/85 02/21/25 20:00 121/85 02/21/25 20:00 36.8 C 02/21/25 19:55 36.8 C O2 Del Method 02/22/25 04:00 Room Air 02/22/25 00:52 02/21/25 23:11 Room Air 02/21/25 22:30 Room Air 02/21/25 22:03 02/21/25 22:01 02/21/25 22:01 02/21/25 22:01 02/21/25 21:51 02/21/25 20:03 02/21/25 20:00 02/21/25 20:00 02/21/25 20:00 02/21/25 19:55 Exam (Neuro) Physical Exam: She is awake and alert. Speech is without aphasia or dysarthria. Mood is normal and affect is appropriate. Thought processes are intact to conversation Extraocular muscles are intact without nystagmus. There is no disconjugate gaze. There is no ptosis. There is no facial asymmetry and the corners of the mouth move well with voluntary smile. Tongue is midline. With outstretched arms there is no drift. There is no ataxia with finger-nose testing. Motor strength is 5/5 diffusely in all major muscle groups in the arms and legs both proximally and distally (symmetrical). PG Care Time/CCT Total # of Minutes Spent Total Time Spent with Patient: Total time spent is greater than 50% in coordination of care (as documented) at patient's floor/unit and/or counseling patient: Coding Level of Care Code 93550 SUB INP/OBS CARE 2/35MIN Diagnoses Cerebrovascular accident (CVA) of left thalamus I63.81 Hypertension I10 Time Spent (min) 35
[2025-02-22 08:29] VITALS: RESP 18; TEMP 97.5
[2025-02-22] MEDS: CLOPIDOGREL BISULFATE 75 MG TAB PO SCH (08:30)
[2025-02-22] MEDS: ASPIRIN 81 MG ECTAB PO SCH (08:31)
[2025-02-22 09:42] VITALS: BP 103/79
--- NOTE | 2025-02-22 09:48 | Discharge Summary ---
Discharge Summary Date of Service February 22, 2025 Principal Dx & Hospital Course #1 = Principal Diagnosis (1) Stroke-like symptoms: Lizette Andrade is a 49 year old female admitted to [facility] from February 20-2024 due to double vision. She was diagnosed with an acute stoke and treated with tenecteplase with complete resolution of her symptoms. She remained hemodynamically stable post-thrombolysis with no hemorrhagic transformation on imaging or clinically. No intracardiac shunt was seen on echocardiogram. CT angiograms were unremarkable. No atrial fibrillation seen on telemetry. She is now being discharged in a stable condition. She should continue on aspirin and clopidogrel for three weeks then continue on the clopidogrel alone and stop aspirin at that time. She was also started on high dose atorvastatin for stroke risk reduction. Hemoglobin A1C 5.7 - she was not started on medications for this. 30 day real estate consultant will be arranged to further assess for atrial fibrillation as an outpatient. Notes For Next Care Provider Follow up eye exam to make sure no return of symptoms - consider ophthalmology evaluation Follow up real estate consultant to assess for atrial fibrillation - this will be mailed to her home Medication Changes From Visit Atorvastatin and clopidogrel added for stroke prevention Admission HPI Per Admitting Provider 49-year-old female PMHx bipolar 1 disorder, IBS, GERD, MR, and thoracic m yofascial strain presenting for complaints of diplopia and dysarthria starting at 1400-day of arrival. Pt's fiance helps to provide a history. Reports that the patient was sitting in her chair playing on her phone when she called out to him saying that she "could not see." Explains that her vision was blurry after she had been looking at her phone for an extended period of time, as she reportedly does each morning. Her fiance, Rubio, then got her food to see if this would help but it did not change her symptoms. He reports that she started to speak oddly, making comments about her daughter getting her a candy bar, which was abnormal for the patient to say such a thing. He had his son, Umang, call 911 at that time. Pt reports that she is still having complaints of vision changes, but no other concerns. When she closes her L eye and only the R eye is open she feels that her vision is normal. When she changes, then her vision still feels "foggy." She denies headache or dizziness. No N/V. She does have a history of migraines "many years ago" that she had to "come to the ED for shots" to manage. Admits to occasional problems with her bowels, normally constipation. She denies chest pain, palpitations, abdominal pain, N/V/D, numbness/tingling, fever/chills, neck pain, numbness/tingling, weakness, dizziness, syncope, or falls. She received TNKase and momentarily felt worse, her fianc stating that he thought she seemed more confused after taking the medication, but has been pretty much back to baseline at the time of admission. She feels almost back to normal as well with exception of blurry vision in her left eye. Has never had this happen before. 2022 she had her mitral valve replaced, in 2023 she had a right hip replacement. She did recently start gabapentin approximately 1 week ago, it is ordered as 3 times daily but she has been taking it twice a day. ED evaluation reveals CBC WNL; PT/INR WNL; CMP sodium 135, glucose 109, AST 11, protein 5.9, globulin 2.4; troponin 3.2; CXR WNL; head CT unremarkable; head CTA no definite stenosis or aneurysm; neck CTA unremarkable; head CT repeat post TNK unremarkable; EKG sinus rhythm with first-degree AV block at 82 bpm.; Provided with TNK IV in ED. Please see Dr. Durham's attestation for adjustments/additions to treatment plan. Discharge Exam Constitutional WD/WN, vitals as above ENMT external ear and nose normal, oropharynx normal Respiratory normal respiratory effort, lungs clear to auscultation Cardiovascular RRR, no murmur, no edema Gastrointestinal (Abdomen) normal bowel sounds, soft, nontender, no hepatosplenomegaly Musculoskeletal no cyanosis or clubbing, extremities motor strength 5/5 Skin no rashes, warm and dry Neurologic moves all extremities and awake; no focal motor deficits Psychiatric A+Ox3, euthymic affect Discharge Plan Discharge Items Patient Disposition: Home - Self-Care Reason For Visit: DIPLOPIA, ? CVA Discharge Diagnosis: Acute stroke Condition on Discharge: Good Activity: Resume your previous activity Non-emergency contact: Primary Care Provider Call non-emergency contact if: you have any medication questions and your sympt oms worsen Follow-up/Referrals: Julian Moss MD [Physician] - 03/08/25 8:30 am (Neurology follow up scheduled on 03/08/25 at 8:[address] Moss) John Robertson PA-C [Primary Care Provider] - 02/24/25 10:30 am (Primary Care hospital follow up scheduled on 02/24/25 at 10:30 with John Robertson) Diet: Heart Healthy Addtl Attending Provider Instructions: You were admitted to [facility] from February 20-2024 due to double vision. You were diagnosed with an acute stoke and treated with thrombolytic (tenecteplase) with complete resolution of your symptoms. You remained hemodynamically stable post-thrombolysis with no hemorrhagic transformation on imaging or clinically. No intracardiac shunt was seen on echocardiogram. You are now being discharged in a stable condition. If you have worsening of your symptoms please return to the emergency room. You should continue on aspirin and clopidogrel for three weeks then continue on the clopidogrel alone and stop aspirin at that time. You have also been started on atorvastatin to help with stroke risk reduction for further strokes. Pending Studies at Discharge: Yes Stand-Alone Forms: [facility], Smoking Cessation, Medications to Prevent Stroke Medications and DC Order Prescriptions: New clopidogrel 75 mg tablet 75 mg PO DAILY Qty: 30 0RF atorvastatin 40 mg tablet 40 mg PO HS Qty: 30 0RF Continued prazosin 1 mg capsule 1 mg PO HS omeprazole 20 mg capsule,delayed release(DR/EC) 20 mg PO BID famotidine 40 mg tablet 40 mg PO HS aspirin 81 mg Tablet,Delayed Release (Dr/Ec) 81 mg PO QAM mirtazapine 30 mg tablet 30 mg PO HS ferrous sulfate 325 mg (65 mg iron) tablet 325 mg PO QAM gabapentin 300 mg capsule 300 mg PO TID PRN (Reason: Pain) Vraylar 3 mg capsule 3 mg PO HS Discharge Orders: Discharge Order (Routine); Ordered 02/22/25 Ordered By: Zack Coello/Other Patient Handouts: Atorvastatin Oral Tablet, Clopidogrel Oral Tablet, Symptoms of Stroke, Stroke: Taking Medicines, Risk Factors for Stroke, Stroke Prevention Eating Healthy, Stroke Prevention Activity Admission Data Admit Date/Time: 02/20/25 20:28 Attending Provider: Zack Wooten Admit Provider: Stevie Durham Primary Care Provider: John Robertson Other Providers: Milly Bailey Emile Other Interventions: Discharge Summary Assessment (RN) Last Done: 02/22/25 09:41 Hospital Stay Data Consultations 02/20/25 18:16 ED Decision to Admit Stat 02/20/25 21:16 Consult Sight Effects Specialist Routine 02/21/25 10:17 Consult Neurology Routine Diagnostic Imagining Performed 02/20/25 17:29 CT angio head w con Stat CT angio neck with con Stat CT head/brain wo con Stat 02/20/25 18:51 CT head/brain wo con Stat 02/20/25 20:15 MRI Brain [MR brain wo con] Stat 02/21/25 18:30 CT head/brain wo con Stat Pending Results Patient Have Any Pending Studies at Discharge: Yes Discharge Instructions Given to Patient (Per Discharging Provider) You were admitted to [facility] from February 20-2024 due to double vision. You were diagnosed with an acute stoke and treated with thrombolytic (tenecteplase) with complete resolution of your symptoms. You remained hemodynamically stable post-thrombolysis with no hemorrhagic transformation on imaging or clinically. No intracardiac shunt was seen on echocardiogram. You are now being discharged in a stable condition. If you have worsening of your symptoms please return to the emergency room. You should continue on aspirin and clopidogrel for three weeks then continue on the clopidogrel alone and stop aspirin at that time. You have also been started on atorvastatin to help with stroke risk reduction for further strokes. Total Time Total Time Spent Total Time Spent (In Minutes): 40 Coding Level of Care Code 72156 INP/OBS DISCH >30 MIN Diagnoses Stroke-like symptoms R29.90
[2025-02-22 09:49] VITALS: PULSE 86
--- NOTE | 2025-02-24 15:12 | Electrocardiogram Report ---
Test Reason : Blood Pressure : */* mmHG Vent. Rate : 82 BPM Atrial Rate : 82 BPM P-R Int : 214 ms QRS Dur : 88 ms QT Int : 386 ms P-R-T Axes : 18 32 36 degrees QTcB Int : 450 ms Sinus rhythm with 1st degree A-V block Otherwise normal ECG When compared with ECG of 19-Dec-2020 00:58, No significant change was found Confirmed by Jakub Brewster ([id number]) on 02/24/2025 3:12:00 PM Referred By: REFERRED SELF Confirmed By: Jakub Brewster
== END 2025-02-22 10:45 | disposition home or self-care (01) | DRG 63 ==
LOC: ED 17:25 → SUATTDRO 20:28 → 1E 20:28
DX: I63.89 Other cerebral infarction; H53.2 Diplopia; Z88.1 Allergy status to other antibiotic agents; Z79.899 Other long term (current) drug therapy; K21.9 Gastro-esophageal reflux disease without esophagitis; Z88.0 Allergy status to penicillin; I10 Essential (primary) hypertension; R29.701 NIHSS score 1; Z79.82 Long term (current) use of aspirin; F17.290 Nicotine dependence, other tobacco product, uncomplicated; I25.10 Atherosclerotic heart disease of native coronary artery without angina pectoris; F31.9 Bipolar disorder, unspecified; Z88.2 Allergy status to sulfonamides; I25.2 Old myocardial infarction; R47.1 Dysarthria and anarthria; F41.9 Anxiety disorder, unspecified; R29.810 Facial weakness; H53.8 Other visual disturbances; Z88.8 Allergy status to other drugs, medicaments and biological substances; E78.5 Hyperlipidemia, unspecified